=== PATIENT | male | born 1950 | race Caucasian/White ===

== ENCOUNTER 2017-06-08 06:07 | Day surgery (SDC) | payer OTHER, BC ==
[2017-06-07 13:25] VITALS: BMI 43.6
[2017-06-08] MEDS ORDERED: HEPARIN NA (PORCINE) 5,000 UNITS/ML 1ML VIAL ONE (07:40)
[2017-06-08] MEDS ORDERED: LIDOCAINE HCL 1%, 10 MG/ML (20ML VIAL) ONE (07:40)
[2017-06-08] MEDS ORDERED: MIDAZOLAM HCL 2 MG/2 ML SINGLE DOSE VIAL ONE ×2 (07:49→08:25)
[2017-06-08] MEDS ORDERED: PROPOFOL 20 ML ONE ×2 (07:49→08:15)
--- NOTE | 2017-06-08 07:49 | HP ---
History & Physical Update - History History: No Change - Physical Physical: No Change - Assessment Assessment: No Change - Plan Plan: No Change (no interval changes since H&P on 05/30/[address] Dewayne Sotomayor.)
[2017-06-08] MEDS ORDERED: LIDOCAINE HCL/PF 2% SDV 5ML VIAL ONE (08:16)
--- NOTE | 2017-06-08 08:21 | HP ---
Satellite [facility] - Chief Complaint History of Present Illness: 66 year old man with stage 5 renal disease who will rquire hemodiaysis in the near future. History Source: Patient Limitations to Obtaining History: No Limitations - Past Medical History Allergies/Adverse Reactions: Allergies Allergy/AdvReac Type Severity Reaction Status Date / Time No Known Allergies Allergy Verified 06/08/17 06:50 Cardiovascular: Yes: HTN Renal/: Yes: Renal Failure - Current Medications Current Medications: Home Medications Medication Instructions Recorded Amlodipine Besylate [Norvasc -] 10 mg PO DAILY 03/12/14 Sodium Bicarbonate 650 mg PO TID 03/12/14 Ergocalciferol (Vitamin D2) 50,000 unit PO WEEKLY 03/13/14 [Vitamin D] Furosemide [Lasix -] 40 mg PO DAILY 03/13/14 Tamsulosin HCl 0.4 mg PO DAILY 07/08/14 Calcitrol 1 tab PO TID 07/05/16 Ferrous Sulfate 325 mg PO DAILY 06/07/17 Satellite Physical Exam - Physical Examination Vital Signs: Vital Signs Period Temp Pulse Resp BP Sys/Marsh Pulse Ox Last 24 Hr 98.3 F 63 20 139/85 97 General Appearance: Alert & Oriented x3 ENT: Clear Lung: Clear to auscultation Heart: Regular rate & rhythm Abdomen: Soft Extremities: No edema, Other (patent cephalic vein left arm. 2+ radial pulse) Neurological: Intact Satellite Impression/Plan - Impression/Plan Impression: CKD 5 Operative Procedure: Creation AV fistula left arm Date to be Performed: 06/08/17
[2017-06-08] MEDS ORDERED: LIDOCAINE HCL 1%, 10 MG/ML (20ML VIAL) NR ONE ×2 (08:35)
[2017-06-08] MEDS ORDERED: ONDANSETRON 4 MG/2 ML VIAL IVPUSH PRN (09:57)
[2017-06-08] MEDS ORDERED: PROMETHAZINE HCL 25 MG/1 ML VIAL IVPB PRN (09:57)
--- NOTE | 2017-06-08 09:58 | SURG ---
Surgery Client Hr Manager Note Client Hr Manager: Brooke Fragoso PA-C Date of Service: 06/08/17 Diagnosis: Chronic kidney disease stage 4 Procedure: creation of left AV fistula I was present for the entirety of the operative procedure. For further detail, please refer to operative report. Visit type - Case Type Case Type: Scheduled Admission - Emergency Emergency Visit: No - New patient This patient is new to me today: Yes Date on this admission: 06/08/17
--- NOTE | 2017-06-08 09:58 | OP ---
Operative Note - Note: Operative Date: 06/08/17 Pre-Operative Diagnosis: chronic kidney disease stage 4 Operation: Creation of left AV fistula Post-Operative Diagnosis: Same as Pre-op Surgeon: Xavi Bhatt Clinical Leader: Brooke Fragoso Anesthesiologist/REHAB LIAISON: Jesús Morley Anesthesia: General, Local Estimated Blood Loss (mls): 20 Fluid Volume Replaced (mls): 100 Operative Report Dictated: Yes
[2017-06-08] MEDS ORDERED: SODIUM CHLORIDE 1,000 ML IV SCH (10:00)
[2017-06-08] MEDS ORDERED: ACETAMINOPHEN 325 MG TABLET (FP) PO PRN (10:03)
[2017-06-08] MEDS ORDERED: oxyCODONE HCL 5 MG TABLET PO PRN (10:03)
[2017-06-08 10:54] VITALS: TEMP 98.7
[2017-06-08 12:56] VITALS: BP 127/73; PULSE 59
--- NOTE | 2017-06-11 11:32 | OP ---
DATE OF OPERATION: 06/08/2017 SURGEON: Xavi Jurado MD FINANCIAL EXAMINER: DEREK Ramirez PROCEDURE: Creation of arteriovenous fistula, left arm. PREOPERATIVE DIAGNOSIS: Renal failure. POSTOPERATIVE DIAGNOSIS: Renal failure. ANESTHESIA: Fractional. ANESTHESIOLOGIST: Jesús Morley MD OPERATIVE FINDINGS: The left cephalic vein and radial artery were patent at the wrist. OPERATIVE PROCEDURE: Following routine patient identification, side and site verification, intravenous sedation was established. The left arm was prepped with ChloraPrep. Xylocaine 1% was infiltrated subcutaneously over the distal cephalic vein above the wrist. A skin incision was made, and the vein was mobilized from the surrounding tissues. Cautery was used for hemostasis. The vein was ligated distally and incised. It was distended with heparin-papaverine solution. No. 5 and No. 8 feeding tubes were passed proximally without resistance. The vein was covered with moist gauze. The radial artery was then exposed, adjacent site. It was encircled with vessel loops. Small side branches were ligated with silk ties and divided. The vein was then completely freed from its bed with ligation of small side branches. It was passed through a short subcutaneous tunnel to lie next to the artery. The artery was then occluded with vessels loops and opened on exposed surface with a 6-mm arteriotomy. The end of the vein was spatulated, and anastomosed to the side of the artery with running sutures of 6-0 Prolene. Prior to the completion of the suture line, The artery and vein were allowed to back-bleed and flush. Suture line was completed, and all vessels were released. There was good flow through the anastomosis with a palpable thrill in the vein. Bleeding from the suture line was controlled with Surgicel. When hemostasis was achieved, the wound was irrigated and closed with interrupted suture of 3-0 Vicryl and skin jc. Sterile dressings were applied, and the patient was taken to the recovery room in stable condition. XAVI JURADO M.D. [id number]
== END 2017-06-08 12:25 | disposition home or self-care (01) ==
LOC: JASU-SURG 06:07
PROVIDERS: ATTEND Surgery
PROC: 031C0ZF Bypass Left Radial Artery to Lower Arm Vein, Open Approach (ICD-10-PCS; principal; 2017-06-08 08:00)
DX: I12.0 Hypertensive chronic kidney disease with stage 5 chronic kidney disease or end stage renal disease (principal); G51.0 Bell's palsy
CPT/HCPCS: 94760; J1644

== ENCOUNTER 2018-02-08 15:52 | Inpatient (IN) | payer OTHER, BC ==
--- NOTE | 2018-02-08 16:00 | PDOC ---
Rapid Medical Evaluation Time Seen by Provider: 02/08/18 15:53 Medical Evaluation: Allergies Allergy/AdvReac Type Severity Reaction Status Date / Time No Known Allergies Allergy Verified 06/08/17 06:50 02/08/18 15:53 I have performed a brief in-person evaluation of this patient. The patient presents with a chief complaint of: sent by renal for eval of SOB Pertinent physical exam findings: left sided facial droop- Montoya's Palsy, RLE swollen. LUE A-V FIstula +bruit, +thrill I have ordered the following: labs, urine, CXR, EKG The patient will proceed to the ED for further evaluation. Discharge Disposition - Diagnosis SOB (shortness of breath) - Referrals - Patient Instructions - Post Discharge Activity
--- NOTE | 2018-02-08 16:17 | PDOC ---
History of Present Illness - General Chief Complaint: Lethargy Stated Complaint: PCP SENT/PAIN, ACUTE Time Seen by Provider: 02/08/18 15:53 - History of Present Illness Initial Comments: 02/08/18 16:56 The patient is a 67 year old male with a history of HTN, ESRD, Lymphedema, Montoya' s Palsy who presents for evaluation of fatigue and SOB. The patient reports that he has been experiencing worsening SOB and fatigue over the past few weeks. He has not started his dialysis yet and was seen by his renal physician Dr. Win who sent the patient to the ED for admission for beginning dialysis tomorrow. The patient otherwise denies fevers, chills, chest pain, nausea, vomiting, abdominal pain, or changes with bowel movements. Past History - Past Medical History Allergies/Adverse Reactions: Allergies Allergy/AdvReac Type Severity Reaction Status Date / Time No Known Allergies Allergy Verified 02/08/18 15:55 Home Medications: Ambulatory Orders Amlodipine Besylate [Norvasc -] 10 mg PO DAILY 03/12/14 Sodium Bicarbonate 650 mg PO TID 03/12/14 Ergocalciferol (Vitamin D2) [Vitamin D] 50,000 unit PO WEEKLY 03/13/14 Furosemide [Lasix -] 40 mg PO DAILY 03/13/14 Tamsulosin HCl 0.4 mg PO DAILY 07/08/14 Calcitrol 1 tab PO TID 07/05/16 Ferrous Sulfate 325 mg PO DAILY 06/07/17 Anemia: No Asthma: No Cancer: No Cardiac Disorders: No CVA: No COPD: Yes CHF: No Dementia: No Diabetes: No GI Disorders: No Disorders: Yes (CYST ON KIDNEY) HTN: Yes Hypercholesterolemia: No Liver Disease: No Seizures: No Thyroid Disease: No Other medical history: Montoya's Palsy - Surgical History Orthopedic Surgery: Yes (RIGHT CARPAL TUNNEL) - Immunization History Immunization Up to Date: Yes - Suicide/Smoking/Psychosocial Hx Smoking History: Never smoked Have you smoked in the past 12 months: No Information on smoking cessation initiated: No Hx Alcohol Use: No Drug/Substance Use Hx: No Substance Use Type: Alcohol Hx Substance Use Treatment: No Review of Systems - Review of Systems Comments:: 02/08/18 17:00 Constitutional: Fatigue. No fevers, chills, malaise HEENT: No Rhinorrhea, nasal congestion, visual changes Cardiovascular: No chest pain, syncope, palpitations, lightheadedness Respiratory: SOB. No Cough, Hemoptysis, Gastrointestinal: No Abdominal pain, Nausea, Vomiting, Constipation, Diarrhea, Melena Genitourinary: No Dysuria, Frequency, Urgency, Hesitancy, Hematuria, Flank pain Musculoskeletal: No Myalgia, arthralgia Skin: No rashes, itching, bruising, pallor Neurologic: No Headache, Dizziness, Numbness, Weakness, or Tingling Psychiatric: No Hallucinations. No SI or HI *Physical Exam - Vital Signs Last Vital Signs Temp Pulse Resp BP Pulse Ox 98 F 72 18 128/60 100 02/08/18 15:55 02/08/18 15:55 02/08/18 15:55 02/08/18 15:55 02/08/18 15:55 - Physical Exam Comments: 02/08/18 17:01 General Appearance: Nourished. No Apparent Distress HEENT: No Pharyngeal Erythema, Tonsillar Exudate, Tonsillar Erythema Neck: No Cervical Lymphadenopathy Respiratory/Chest: Lungs Clear, Normal Breath Sounds. No Crackles, Rales, Rhonchi, Wheezing Cardiovascular: Regular Rhythm, Regular Rate. 4/6 systolic murmur noted on exam. No Gallops, Rubs Gastrointestinal/Abdominal: Normal Bowel Sounds, Soft. No Guarding, Rebound, Tenderness Musculoskeletal: No CVA Tenderness Extremity: Pitting edema to the lower extremities. Normal Capillary Refill Integumentary: Normal Color, Dry, Warm Neurologic: Fully Oriented, Alert, Normal Mood/Affect, Normal Response, ED Treatment Course - LABORATORY CBC & Chemistry Diagram: 02/09/18 06:30 02/09/18 06:30 Medical Decision Making - Medical Decision Making 02/08/18 17:02 The patient is a 67 year old male with a history of HTN, ESRD, Lymphedema, Montoya' s Palsy who presents for evaluation of fatigue and SOB. Given the patient's history and physical exam, we will obtain a cbc, cmp, troponin, ekg, chest plain film to evaluate further. We discussed the case with Dr. Win who is aware of the patient and will arrange for dialysis tomorrow. We will continue to monitor and reassess while here in the ED. 02/08/18 18:50 CBC, troponin is unremarkable. CMP demonstrates an elevated creatinine to 6.6. Chest plain film is unremarkable. We discussed the case with the admitting team who accepted the patient for admission. *DC/Admit/Observation/Transfer Diagnosis at time of Disposition: SOB (shortness of breath) - Discharge Dispostion Condition at time of disposition: Stable Decision to Admit order: Yes - Referrals - Patient Instructions - Post Discharge Activity
[2018-02-08 16:29] LABS: BASO % 0.6 % (0-2.0); EOS % 2.6 % (0-4.5); HEMATOCRIT 31.7 % (35.4-49); HEMOGLOBIN 10.5 GM/dL (11.7-16.9); LYMPH % 12.5 % (8-40); MCH 30.7 pg (25.7-33.7); MCHC 33.1 g/dl (32.0-35.9); MEAN CELL VOLUME 92.8 fl (80-96); MEAN PLT VOLUME 8.2 fl (7.5-11.1); NEUT % 75.3 % (42.8-82.8); PLATELET COUNT 161 K/MM3 (134-434); RBC 3.41 M/mm3 (4.00-5.60); RDW 16.4 % (11.9-15.9); WHITE BLOOD COUNT 4.6 K/mm3 (4.0-10.0)
[2018-02-08 17:12] LABS: INR 1.13 (0.83-1.09); PROTHROMBIN TIME (PATIENT) 13.4 SEC (9.7-13.0)
[2018-02-08 17:18] LABS: ALBUMIN 3.7 g/dl (3.4-5.0); ALK PHOS 63 U/L (45-117); ANION GAP 10 MMOL/L (8-16); BILIRUBIN,TOTAL 0.5 mg/dL (0.2-1); BLOOD UREA NITROGEN 86 mg/dL (7-18); CALCIUM 8.5 mg/dL (8.5-10.1); CHLORIDE 111 mmol/L (98-107); CO2 20 mmol/L (21-32); CREATININE 6.6 mg/dL (0.55-1.3); GLUCOSE,RANDOM 92 mg/dL (74-106); POTASSIUM 5.2 mmol/L (3.5-5.1); SGOT/AST 14 U/L (15-37); SGPT/ALT 19 U/L (13-61); SODIUM 141 mmol/L (136-145); TOT PROT 7.4 g/dl (6.4-8.2)
--- NOTE | 2018-02-08 17:51 | PDOC ---
Attending Attestation - Resident Resident Name: Ascencion Ramos - ED Attending Attestation I have performed the following: I have examined & evaluated the patient, The case was reviewed & discussed with the resident, I agree w/resident's findings & plan, Exceptions are as noted - HPI HPI: 02/08/18 17:49 67 M with h/o HTN, ESRD, Lymphedema, Montoya's Palsy presenting to ED for weakness and SOB. Pt reports progressively worsening SOB for several days. Denies significant change in leg swelling. Denies chest pain. Denies F/C. Pt was sent in by production finisher for initiation of HD today. Has AVF in place. - Physicial Exam PE: 02/08/18 17:50 "GENERAL: Awake, alert, and fully oriented, in no acute distress. HEAD: No signs of trauma EYES: PERRLA, EOMI, sclera anicteric, conjunctiva clear ENT: Auricles normal inspection, hearing grossly normal, nares patent, oropharynx clear without exudates. Moist mucosa NECK: Nontender, no stepoffs, Normal ROM, supple, no lymphadenopathy, JVD, or masses LUNGS: Breath sounds equal, clear to auscultation bilaterally. No wheezes, and no crackles HEART: Regular rate and rhythm, normal S1 and S2, no murmurs, rubs or gallops ABDOMEN: Soft, nontender, normoactive bowel sounds. No guarding, no rebound. No masses EXTREMITIES: Normal range of motion, no edema. No clubbing or cyanosis. No cords, erythema, or tenderness NEUROLOGICAL: Cranial nerves II through XII intact. 5/5 strength and sensation in all extremities, Normal speech, normal gait, normal cerebellar function SKIN: Warm, Dry, normal turgor, no rashes or lesions noted. - Medical Decision Making 02/08/18 17:50 67 M with weakness and SOB. Likely 2/2 known renal failure. Pt sent in for initiation of HD. - Labs - CXR - Admit
--- NOTE | 2018-02-08 18:14 | PN ---
Teaching Attending Note Name of Resident: Aditya Dhaliwal ATTENDING PHYSICIAN STATEMENT I saw and evaluated the patient. I reviewed the resident's note and discussed the case with the resident. I agree with the resident's findings and plan as documented. SUBJECTIVE:67yo M with PMH HTn, lymphedema, bells palsy and CKD stage V who had AV fistula placed in May 2017 presented for regular scheduled appointment with Nephrology. OBJECTIVE: Last Vital Signs Temp Pulse Resp BP Pulse Ox 98 F 72 18 128/60 100 02/08/18 15:55 02/08/18 15:55 02/08/18 15:55 02/08/18 15:55 02/08/18 17:45 General NAD CV S1 S2 RRR +murmur Lungs CTA B/L no wheezing/rales/rhonchi Abdomen soft NT/ND obese Extremities LUE +av fistula with palpable thrill. chronic skin changes B/L LE, RLE +lymphedema ASSESSMENT AND PLAN:
[2018-02-08 19:39] LABS: URINE APPEARANCE CLEAR; URINE BILIRUBIN NEGATIVE (<2.0 mg/dL); URINE COLOR LTYELLOW; URINE GLUCOSE (UA) NEGATIVE (NEGATIVE); URINE KETONE NEGATIVE (NEGATIVE); URINE LEUK ESTERASE NEGATIVE (NEGATIVE); URINE NITRITE NEGATIVE (NEGATIVE); URINE PROTEIN 3+ (NEGATIVE); URINE UROBILINOGEN NEGATIVE mg/dL (0.2-1.0)
[2018-02-08 20:04] LABS: URINE MUCUS RARE
--- NOTE | 2018-02-08 20:24 | HP ---
CHIEF COMPLAINT: Shortness of breath, fatigue x 1-2 weeks PCP: Dr Sotomayor HISTORY OF PRESENT ILLNESS: Pt is a pleasant 67 y/o gentleman with a significant past medical history of CKD stage V, HTN, chronic lymphadema RLE, and Montoya's palsy. Pt presented to [facility] ED this afternoon after being seen by his Visualizer today who advised the pt to come to our ED as pt did not appear in his USOH. Pt endorses that for the past 1-2 weeks, he has been more short of breath upon walking to the restroom and carrying out daily activities. Denies chest pain, dizziness, LOC, or increased lower extremity swelling. UInderwent AV fistula surgery in May of this year and was suppose to undergo dialysis today. Tentatively he is scheduled for dialysis tomorrow. Also endorses a decreased appetite during this time. ER course was notable for: (1) Troponin 0.03 (2) BUN/CR 86/6.6 (3) Chest XRAY-->No acute process appreciated Recent Travel: denies PAST MEDICAL HISTORY: Per HPI PAST SURGICAL HISTORY: B/L carpel tunnel surgery, eye surgery for " hole in retina", AV fistula Social History: Smoking:Denies Alcohol: Social Drinker Drugs: Denies Family History: Allergies No Known Allergies Allergy (Verified 02/08/18 15:55) HOME MEDICATIONS: Home Medications Medication Instructions Recorded Amlodipine Besylate [Norvasc -] 10 mg PO DAILY 03/12/14 Sodium Bicarbonate 650 mg PO TID 03/12/14 Ergocalciferol (Vitamin D2) 50,000 unit PO WEEKLY 03/13/14 [Vitamin D] Furosemide [Lasix -] 40 mg PO DAILY 03/13/14 Tamsulosin HCl 0.4 mg PO DAILY 07/08/14 Calcitrol 1 tab PO TID 07/05/16 Ferrous Sulfate 325 mg PO DAILY 06/07/17 REVIEW OF SYSTEMS CONSTITUTIONAL: Absent: fever, chills, diaphoresis, generalized weakness, malaise, loss of appetite, weight change HEENT: Absent: rhinorrhea, nasal congestion, throat pain, throat swelling, difficulty swallowing, mouth swelling, ear pain, eye pain, visual changes CARDIOVASCULAR: Absent: chest pain, syncope, palpitations, irregular heart rate, lightheadedness , peripheral edema RESPIRATORY: PRESENT: shortness of breath, dyspnea with exertion GASTROINTESTINAL: Absent: abdominal pain, abdominal distension, nausea, vomiting, diarrhea, constipation, melena, hematochezia GENITOURINARY: Absent: dysuria, frequency, urgency, hesitancy, hematuria, flank pain, genital pain MUSCULOSKELETAL: Absent: myalgia, arthralgia, joint swelling, back pain, neck pain SKIN: Absent: rash, itching, pallor HEMATOLOGIC/IMMUNOLOGIC: Absent: easy bleeding, easy bruising, lymphadenopathy, frequent infections ENDOCRINE: Absent: unexplained weight gain, unexplained weight loss, heat intolerance, cold intolerance NEUROLOGIC: Absent: headache, focal weakness or paresthesias, dizziness, unsteady gait, seizure, mental status changes, bladder or bowel incontinence PSYCHIATRIC: Absent: anxiety, depression, suicidal or homicidal ideation, hallucinations. PHYSICAL EXAMINATION Vital Signs - 24 hr 02/08/18 02/08/18 15:55 17:45 Temperature 98 F Pulse Rate 72 Respiratory 18 Rate Blood Pressure 128/60 O2 Sat by Pulse 100 100 Oximetry (%) GENERAL: AAOx3, NAD HEAD: Normal with no signs of trauma. EYES: EOMI EARS, NOSE, THROAT:MMM. NECK: Supple LUNGS: CTA B/L, no wheezing rales or rhonchi . HEART: Possible holosystolic murmur? ABDOMEN: Soft NDNT No HSM MUSCULOSKELETAL: FROM UPPER EXTREMITIES:AV fistula left lower extremity, thrill palpable LOWER EXTREMITIES: LYMPHADEMA, VENOUS STASIS, onychomycosis b/l feet. NEUROLOGICAL: Cranial nerves II-XII intact. SKIN: Venous stasis, dermatitis RLE Laboratory Results - last 24 hr 02/08/18 02/08/18 02/08/18 16:09 16:15 16:15 WBC 4.6 RBC 3.41 L Hgb 10.5 L Hct 31.7 L D MCV 92.8 MCH 30.7 MCHC 33.1 RDW 16.4 H Plt Count 161 MPV 8.2 D Absolute Neuts (auto) 3.5 Neutrophils % 75.3 Lymphocytes % 12.5 Monocytes % 9.0 Eosinophils % 2.6 Basophils % 0.6 Nucleated RBC % 0 PT with INR 13.40 H INR 1.13 H Sodium 141 Potassium 5.2 H Chloride 111 H Carbon Dioxide 20 L Anion Gap 10 BUN 86 H Creatinine 6.6 H Creat Clearance w eGFR 8.39 Random Glucose 92 Calcium 8.5 Total Bilirubin 0.5 AST 14 L ALT 19 Alkaline Phosphatase 63 Creatine Kinase 56 Troponin I 0.03 Total Protein 7.4 Albumin 3.7 Urine Color Urine Appearance Urine pH Ur Specific [place] Urine Protein Urine Glucose (UA) Urine Ketones Urine Blood Urine Nitrite Urine Bilirubin Urine Urobilinogen Ur Leukocyte Esterase 02/08/18 19:15 WBC RBC Hgb Hct MCV MCH MCHC RDW Plt Count MPV Absolute Neuts (auto) Neutrophils % Lymphocytes % Monocytes % Eosinophils % Basophils % Nucleated RBC % PT with INR INR Sodium Potassium Chloride Carbon Dioxide Anion Gap BUN Creatinine Creat Clearance w eGFR Random Glucose Calcium Total Bilirubin AST ALT Alkaline Phosphatase Creatine Kinase Troponin I Total Protein Albumin Urine Color Ltyellow Urine Appearance Clear Urine pH 5.0 Ur Specific [place] 1.011 Urine Protein 3+ H Urine Glucose (UA) Negative Urine Ketones Negative Urine Blood 1+ H Urine Nitrite Negative Urine Bilirubin Negative Urine Urobilinogen Negative Ur Leukocyte Esterase Negative ASSESSMENT/PLAN: Pt is a pleasant 67 y/o gentleman with a significant past medical history of CKD stage V, HTN, chronic lymphadema RLE, and Montoya's palsy. Pt presented to [facility] ED this afternoon after being seen by his Visualizer today who advised the pt to come to our ED as pt did not appear in his USOH. # SOB/Weakness 2/2 Uremia 2/2 CKD/CHF? - BUN/Cr--> 86/6.6 -Nephrology Dr Tran on board - HD Tomorrow - Echocardiogram -EKG in ED--> 1st degree AV block, consider cardiology consult? -Continue Vit D2, Calciferol, Ferrous Sulfate, NaHCO3 - Troponin 0.03 #HTN Continue Norvasc 10 mg Daily #BPH Tamsulosin 0.8 mg #FEN No Fluids Monitor Electrolytes Renal Diet #DVT ppx: Heparin 5,000 U SQ TID #Dispo: Obs Visit type - Emergency Visit Emergency Visit: Yes ED Registration Date: 02/08/18 Care time: The patient presented to the Emergency Department on the above date and was hospitalized for further evaluation of their emergent condition. - New Patient This patient is new to me today: Yes Date on this admission: 02/08/18 - Critical Care Critical Care patient: No
[2018-02-08] MEDS ORDERED: HEPARIN NA (PORCINE) 5,000 UNITS/ML 1ML VIAL ONE (22:29)
[2018-02-08] MEDS: HEPARIN NA (PORCINE) 5,000 UNITS/ML 1ML VIAL SQ SCH (22:39)
[2018-02-08] MEDS: SODIUM BICARBONATE 650 MG TABLET PO SCH (23:27)
[2018-02-09] MEDS: HEPARIN NA (PORCINE) 5,000 UNITS/ML 1ML VIAL SQ SCH ×3 (05:52→21:17)
[2018-02-09] MEDS: SODIUM BICARBONATE 650 MG TABLET PO SCH ×3 (05:52→21:17)
[2018-02-09 07:13] LABS: BASO % 2.3 % (0-2.0); EOS % 4.2 % (0-4.5); HEMATOCRIT 30.1 % (35.4-49); HEMOGLOBIN 9.7 GM/dL (11.7-16.9); LYMPH % 16.6 % (8-40); MCH 29.7 pg (25.7-33.7); MEAN CELL VOLUME 92.7 fl (80-96); NEUT % 66.9 % (42.8-82.8); PLATELET COUNT 125 K/MM3 (134-434); RBC 3.25 M/mm3 (4.00-5.60); RDW 16.2 % (11.9-15.9); WHITE BLOOD COUNT 4.2 K/mm3 (4.0-10.0)
[2018-02-09 07:33] LABS: ANION GAP 7 MMOL/L (8-16); BLOOD UREA NITROGEN 83 mg/dL (7-18); CALCIUM 8.2 mg/dL (8.5-10.1); CHLORIDE 111 mmol/L (98-107); CO2 22 mmol/L (21-32); CREATININE 6.5 mg/dL (0.55-1.3); GLUCOSE,RANDOM 87 mg/dL (74-106); INR 1.18 (0.83-1.09); MAGNESIUM 2.8 mg/dL (1.8-2.4); PHOSPHOROUS 6.1 mg/dL (2.5-4.9); POTASSIUM 4.8 mmol/L (3.5-5.1); PROTHROMBIN TIME (PATIENT) 13.9 SEC (9.7-13.0); SODIUM 141 mmol/L (136-145)
[2018-02-09 07:36] LABS: ACTIVATED PTT 34.9 SECONDS (25.2-36.5)
[2018-02-09] MEDS: TAMSULOSIN HCL 0.4 MG CAP PO SCH (07:47)
[2018-02-09] MEDS: amLODIPine BESYLATE 10 MG TABLET (FP) PO SCH (10:07)
[2018-02-09] MEDS: CALCITRIOL 0.25 MCG CAPSULE (FP) PO SCH (10:07)
[2018-02-09] MEDS: FUROSEMIDE 40 MG TABLET (FP) PO SCH (10:08)
[2018-02-09] MEDS: FERROUS SO4 325 MG TABLET (FP) PO SCH (10:08)
--- NOTE | 2018-02-09 10:38 | CONSULT ---
Consultation: CONSULT REQUEST: Nephrology Resident HISTORY OF PRESENT ILLNESS: 67yo M with h/o CKD stage V, HTN, RLE lymphedema and Montoya's palsy who initially presented from Dr. Tran's office due to uremia and likely introduction to HD. Pt endorses being increasingly short of breath with his daily activities. He underwent AVF creation in Dr. Bhatt in May 2017 in anticipation of worsening renal status and eventual HD initiation. Pt currently has no new complaints. Pt denies fever/chills, chest pain, palpitations. PMHx: CKD Stage V HTN Chronic lymphedema Montoya's Palsy PSHx: Retinal surgery B/L carpel tunnel release AV fistula creation (May 2017) SoHx: Tobacco: Denies Alcohol: Social Drugs: Denies Lives alone in apartment; independent in ADLs; uses cane for walking Allergies: NKDA REVIEW OF SYSTEMS: CONSTITUTIONAL: Absent: fever, chills, diaphoresis, generalized weakness, malaise, loss of appetite, weight change CARDIOVASCULAR: Absent: chest pain, syncope, palpitations, irregular heart rate, lightheadedness , peripheral edema RESPIRATORY: Absent: cough, shortness of breath, dyspnea with exertion, orthopnea, wheezing, stridor, hemoptysis GASTROINTESTINAL: Absent: abdominal pain, abdominal distension, nausea, vomiting, diarrhea, constipation GENITOURINARY: Absent: dysuria, frequency, urgency, hesitancy, hematuria, flank pain MUSCULOSKELETAL: Absent: myalgia, arthralgia, joint swelling, back pain, neck pain SKIN: Absent: rash, itching, pallor NEUROLOGIC: Absent: headache, focal weakness or paresthesias, dizziness, unsteady gait, seizure, mental status changes, bladder or bowel incontinence PSYCHIATRIC: Absent: anxiety, depression, PHYSICAL EXAMINATION Vital Signs - 24 hr 02/08/18 02/08/18 02/08/18 15:55 17:45 20:15 Temperature 98 F 99.1 F Pulse Rate 72 Pulse Rate [ 60 Apical] Respiratory 18 18 Rate Blood Pressure 128/60 Blood Pressure 126/69 [Right Arm] O2 Sat by Pulse 100 100 98 Oximetry (%) 02/08/18 02/09/18 02/09/18 23:20 02:00 06:00 Temperature 97.6 F 98 F 97.7 F Pulse Rate 68 65 64 Pulse Rate [ Apical] Respiratory 18 18 18 Rate Blood Pressure 140/81 98/61 133/70 Blood Pressure [Right Arm] O2 Sat by Pulse 98 98 Oximetry (%) GENERAL: NAD, awake, alert, and fully oriented, sitting in bed eating lunch HEENT: NC/AT, EOMI, TRISTAN, sclera anicteric, MMM NECK: No JVD LUNGS: CTA bilaterally with good inspiratory effort noted. No wheezes, and no crackles. No accessory muscle use. HEART: RRR, normal S1 and S2 without murmur ABDOMEN: Soft, NT/ND, normoactive bowel sounds, no guarding. EXTREMITIES: 2+ lower extremitiy pulses, L wrist AVF with strong thrill with systolic upstroke. No peripheral edema PSYCHIATRIC: Cooperative. Good eye contact. Appropriate mood and affect. SKIN: Warm, dry, no rashes Laboratory Results - last 24 hr 02/08/18 02/08/18 02/08/18 16:09 16:15 16:15 WBC 4.6 RBC 3.41 L Hgb 10.5 L Hct 31.7 L D MCV 92.8 MCH 30.7 MCHC 33.1 RDW 16.4 H Plt Count 161 MPV 8.2 D Absolute Neuts (auto) 3.5 Neutrophils % 75.3 Lymphocytes % 12.5 Monocytes % 9.0 Eosinophils % 2.6 Basophils % 0.6 Nucleated RBC % 0 PT with INR 13.40 H INR 1.13 H PTT (Actin FS) Sodium 141 Potassium 5.2 H Chloride 111 H Carbon Dioxide 20 L Anion Gap 10 BUN 86 H Creatinine 6.6 H Creat Clearance w eGFR 8.39 Random Glucose 92 Calcium 8.5 Phosphorus Magnesium Total Bilirubin 0.5 AST 14 L ALT 19 Alkaline Phosphatase 63 Creatine Kinase 56 Troponin I 0.03 Total Protein 7.4 Albumin 3.7 Urine Color Urine Appearance Urine pH Ur Specific [address] Urine Protein Urine Glucose (UA) Urine Ketones Urine Blood Urine Nitrite Urine Bilirubin Urine Urobilinogen Ur Leukocyte Esterase Urine WBC (Auto) Urine RBC (Auto) Urine Mucus 02/08/18 02/09/18 02/09/18 19:15 06:30 06:30 WBC 4.2 RBC 3.25 L Hgb 9.7 L Hct 30.1 L MCV 92.7 MCH 29.7 MCHC 32.0 RDW 16.2 H Plt Count 125 L D MPV 8.0 Absolute Neuts (auto) 2.8 Neutrophils % 66.9 Lymphocytes % 16.6 D Monocytes % 10.0 Eosinophils % 4.2 Basophils % 2.3 H D Nucleated RBC % 0 PT with INR 13.90 H INR 1.18 H PTT (Actin FS) 34.9 Sodium Potassium Chloride Carbon Dioxide Anion Gap BUN Creatinine Creat Clearance w eGFR Random Glucose Calcium Phosphorus Magnesium Total Bilirubin AST ALT Alkaline Phosphatase Creatine Kinase Troponin I Total Protein Albumin Urine Color Ltyellow Urine Appearance Clear Urine pH 5.[address] 1.011 Urine Protein 3+ H Urine Glucose (UA) Negative Urine Ketones Negative Urine Blood 1+ H Urine Nitrite Negative Urine Bilirubin Negative Urine Urobilinogen Negative Ur Leukocyte Esterase Negative Urine WBC (Auto) 3 Urine RBC (Auto) <1 Urine Mucus Rare 02/09/18 06:30 WBC RBC Hgb Hct MCV MCH MCHC RDW Plt Count MPV Absolute Neuts (auto) Neutrophils % Lymphocytes % Monocytes % Eosinophils % Basophils % Nucleated RBC % PT with INR INR PTT (Actin FS) Sodium 141 Potassium 4.8 Chloride 111 H Carbon Dioxide 22 Anion Gap 7 L BUN 83 H Creatinine 6.5 H Creat Clearance w eGFR 8.54 Random Glucose 87 Calcium 8.2 L Phosphorus 6.1 H Magnesium 2.8 H Total Bilirubin AST ALT Alkaline Phosphatase Creatine Kinase Troponin I Total Protein Albumin Urine Color Urine Appearance Urine pH Ur Specific [address] Urine Protein Urine Glucose (UA) Urine Ketones Urine Blood Urine Nitrite Urine Bilirubin Urine Urobilinogen Ur Leukocyte Esterase Urine WBC (Auto) Urine RBC (Auto) Urine Mucus Active Medications Generic Name Dose Route Start Last Admin Trade Name Freq PRN Reason Stop Dose Admin Amlodipine Besylate 10 mg 02/09/18 10:00 02/09/18 10:07 Norvasc - PO 10 mg DAILY [facility] Administration Calcitriol 0.25 mcg 02/09/18 10:00 02/09/18 10:07 Rocaltrol - PO 0.25 mcg DAILY [facility] Administration Ergocalciferol 50,000 unit 02/15/18 10:00 Drisdol - PO We@1000 [facility] Ferrous Sulfate 325 mg 02/09/18 10:00 02/09/18 10:08 Feosol - PO 325 mg DAILY [facility] Administration Furosemide 40 mg 02/09/18 10:00 02/09/18 10:08 Lasix - PO 40 mg DAILY [facility] Administration Heparin Sodium (Porcine) 5,000 unit 02/08/18 22:00 02/09/18 05:52 Heparin - SQ 5,000 unit TID [facility] Administration Sodium Bicarbonate 650 mg 02/08/18 22:00 02/09/18 05:52 Sodium Bicarbonate - PO 650 mg TID [facility] Administration Tamsulosin HCl 0.8 mg 02/09/18 08:30 02/09/18 07:47 Flomax - PO 0.8 mg DAILY@0830 [facility] Administration ASSESSMENT/PLAN: Uremia Hyperkalemia (improved) CKD stage V 1st Degree AV block Montoya's Palsy Vascular to assess for AVF usability Can arrange for short course of HD tomorrow --Likely short course 2:00h with 200-250abf for initiation to avoid disequilibrium syndrome --Discussed with pt about starting dialysis and is okay with initiating dialysis now. Will obtain consent from pt prior to procedure. All questions answered Lyme Ab ordered given 1st degree AV block and Montoya's palsy; will f/u Dispo: HD initiation tomorrow pending vascular surgery approval of aVF. Thank you for this consultative opportunity Case to be discussed Eliceo Diaz, - IM PGY-2 Visit type - Emergency Visit Emergency Visit: Yes ED Registration Date: 02/08/18 Care time: The patient presented to the Emergency Department on the above date and was hospitalized for further evaluation of their emergent condition. - New Patient This patient is new to me today: Yes Date on this admission: 02/09/18 - Critical Care Critical Care patient: No
--- NOTE | 2018-02-09 11:50 | EKG ---
Test Reason : Blood Pressure : / mmHG Vent. Rate : 065 BPM Atrial Rate : 065 BPM P-R Int : 210 ms QRS Dur : 108 ms QT Int : 410 ms P-R-T Axes : 056 -25 046 degrees QTc Int : 426 ms SINUS RHYTHM WITH 1ST DEGREE A-V BLOCK CANNOT RULE OUT ANTERIOR INFARCT , AGE UNDETERMINED ABNORMAL ECG NO PREVIOUS ECGS AVAILABLE Confirmed by ABRIL DE LA CRUZ MD ([id number]) on 02/09/2018 11:50:51 AM Referred By: Confirmed By:ABRIL DE LA CRUZ MD
[2018-02-09] MEDS ORDERED: PNEUMOC 13-VAL CONJ-DIP CRM/PF 0.5 ML DISP.SYRIN IM ONE (12:30)
--- NOTE | 2018-02-09 13:17 | PN ---
Teaching Attending Note Name of Resident: Aditya Lopez ATTENDING PHYSICIAN STATEMENT I saw and evaluated the patient. I reviewed the resident's note and discussed the case with the resident. I agree with the resident's findings and plan as documented. SUBJECTIVE:feeling better today. still does not feel at baseline. dneies CP, SOB , fever, chills, N/V/C/D OBJECTIVE: Last Vital Signs Temp Pulse Resp BP Pulse Ox 97.8 F 65 18 124/60 98 02/09/18 10:00 02/09/18 10:00 02/09/18 10:00 02/09/18 10:00 02/09/18 06:00 General NAD CV S1 S2 RRR Lungs CTA B/L no wheezing/rales/rhonchi ASSESSMENT AND PLAN: 67yo M with PMHHTN, [place]ist[place] palsy, lymphedema, CKD stage V presented to the Er wtih vague constitutional symptoms and general well being and found to be uremic and plan to initiate HD at this time 1. Acute uremia-clinically stable. plan to initiate HD today. gilles will do 2 abbreviated sessions to prevent disequilibrium syndrome. no signs of volume overload. nephrology consulted 2. 1st degree AV block- seen on EKG. no previous to compare. hx of bells palsy. Lyme titers sent. can f/u with cardio as outpatient 3. lympedema- elevate legs. 4. HTN- controlled. cont home medications 5. [place] Palsy 6. DVT ppx- hep sq
--- NOTE | 2018-02-09 14:10 | PN ---
Teaching Attending Note Name of Resident: Eliceo Diaz (Nephrology) ATTENDING PHYSICIAN STATEMENT I saw and evaluated the patient. I reviewed the resident's note and discussed the case with the resident. I agree with the resident's findings and plan as documented. Renal Pt is a 67year old male with pmhx of CKD and HTN. I sent him to ER yesterday as I saw him in the office and he appeared uremic. He was also complaining pf fatigue and decreased PO intake. He says he feels better today and is actually tolerating diet. pmhx htn ckd lymphedema pshx avf social neg Current Medications Generic Name Dose Route Start Last Admin Trade Name Freq PRN Reason Stop Dose Admin Amlodipine Besylate 10 mg 02/09/18 10:00 02/09/18 10:07 Norvasc - PO 10 mg DAILY [facility] Administration Calcitriol 0.25 mcg 02/09/18 10:00 02/09/18 10:07 Rocaltrol - PO 0.25 mcg DAILY [facility] Administration Ergocalciferol 50,000 unit 02/15/18 10:00 Drisdol - PO We@1000 [facility] Ferrous Sulfate 325 mg 02/09/18 10:00 02/09/18 10:08 Feosol - PO 325 mg DAILY [facility] Administration Furosemide 40 mg 02/09/18 10:00 02/09/18 10:08 Lasix - PO 40 mg DAILY [facility] Administration Heparin Sodium (Porcine) 5,000 unit 02/08/18 22:00 02/09/18 13:28 Heparin - SQ 5,000 unit TID [facility] Administration Sodium Bicarbonate 650 mg 02/08/18 22:00 02/09/18 13:27 Sodium Bicarbonate - PO 650 mg TID [facility] Administration Tamsulosin HCl 0.8 mg 02/09/18 08:30 02/09/18 07:47 Flomax - PO 0.8 mg DAILY@0830 [facility] Administration Laboratory Tests 02/09/18 02/09/18 06:30 06:30 Hgb 9.7 L Potassium 4.8 BUN 83 H Creatinine 6.5 H Last Vital Signs Temp Pulse Resp BP Pulse Ox 97.8 F 65 18 124/60 98 02/09/18 10:00 02/09/18 10:00 02/09/18 10:00 02/09/18 10:00 02/09/18 06:00 cardio s1s2 reg pulm clear GI soft obese ext lymphedema neuro awake skin venous stasis Impression 1. CKD 2. htn 3. lymphedema Plan - called vascular to evaluate fistula - if fistula is mature enough, start HD tomorrow - if not the will try to hold off and observe pt as outpt - would like to avoid a permacath if possible - pt is also clinically improved Dr Tran
[2018-02-09 15:39] VITALS: BMI 42.5
[2018-02-09] MEDS: CALCIUM ACETATE 667 MG CAPSULE (FP) PO SCH (16:54)
--- NOTE | 2018-02-09 17:30 | CONSULT ---
Consult - History of Present Illness History of Present Illness: 67 year old man with renal failure who will need dialysis to start. He has a left arm AV fistula created in May. He has no pian or swelling in the arm. - Past Medical History Cardio/Vascular: Yes: HTN Renal/: Yes: Renal Failure - Alcohol/Substance Use Hx Alcohol Use: No - Smoking History Smoking history: Never smoked Have you smoked in the past 12 months: No Home Medications - Allergies Allergies/Adverse Reactions: Allergies Allergy/AdvReac Type Severity Reaction Status Date / Time No Known Allergies Allergy Verified 02/08/18 15:55 - Home Medications Home Medications: Ambulatory Orders Amlodipine Besylate [Norvasc -] 10 mg PO DAILY 03/12/14 Sodium Bicarbonate 650 mg PO TID 03/12/14 Ergocalciferol (Vitamin D2) [Vitamin D] 50,000 unit PO WEEKLY 03/13/14 Furosemide [Lasix -] 40 mg PO DAILY 03/13/14 Tamsulosin HCl 0.4 mg PO DAILY 07/08/14 Calcitrol 1 tab PO TID 07/05/16 Ferrous Sulfate 325 mg PO DAILY 06/07/17 Physical Exam Vital Signs: Vital Signs Temperature 97.3 F L 02/09/18 14:12 Pulse Rate 68 02/09/18 14:12 Respiratory Rate 18 02/09/18 14:12 Blood Pressure 122/64 02/09/18 14:12 O2 Sat by Pulse Oximetry (%) 98 02/09/18 14:00 Extremities: Yes: Other (Left radial cephalic fistula with good bruit and thrill. Vein 5-6 mm by exam.) Labs: CBC, BMP 02/09/18 06:30 02/09/18 06:30 Problem List - Problems (1) CKD (chronic kidney disease) stage 5, GFR less than 15 ml/min Assessment/Plan: Left arm fistula is mature and may be used for dialysis access. He had a [facility] evaluation in my office in August which showed the vein > 6 mm with volume flow 800 cc/min. Code(s): N18.5 - CHRONIC KIDNEY DISEASE, STAGE 5
--- NOTE | 2018-02-09 18:48 | PN ---
Physical Exam: SUBJECTIVE: Patient seen and examined at bedside. Denies any complaints. Resting in bed comfortably. No acute events overnight. For HD tomorrow. OBJECTIVE: Vital Signs Period Temp Pulse Resp BP Sys/Marsh Pulse Ox Last 24 Hr 97.3 F-99.1 F 60-68 18-18 98-140/60-81 98-98 GENERAL: AAOx3, NAD HEAD: NC/AT EYES: PERRLA, EOMI No scleral icterus ENT: MMM No adenopathy, no JVD NECK: Trachea midline supple LUNGS:CTA B/L HEART: Murmur heart in all 4 areas of heart. 2/2 to thrill from AV fistula? ABDOMEN: Obese NDNT No HSM EXTREMITIES: Lymphadema Right lower extremity, venous stasis/dermatitis. AV fistula left arm. PSYCH: Normal mood, normal affect. SKIN:Venous stasis/dermatitis b/l lower extremities Laboratory Results - last 24 hr 02/08/18 02/09/18 02/09/18 19:15 06:30 06:30 WBC 4.2 RBC 3.25 L Hgb 9.7 L Hct 30.1 L MCV 92.7 MCH 29.7 MCHC 32.0 RDW 16.2 H Plt Count 125 L D MPV 8.0 Absolute Neuts (auto) 2.8 Neutrophils % 66.9 Lymphocytes % 16.6 D Monocytes % 10.0 Eosinophils % 4.2 Basophils % 2.3 H D Nucleated RBC % 0 PT with INR 13.90 H INR 1.18 H PTT (Actin FS) 34.9 Sodium Potassium Chloride Carbon Dioxide Anion Gap BUN Creatinine Creat Clearance w eGFR Random Glucose Calcium Phosphorus Magnesium Urine Color Ltyellow Urine Appearance Clear Urine pH 5.0 Ur Specific [place] 1.011 Urine Protein 3+ H Urine Glucose (UA) Negative Urine Ketones Negative Urine Blood 1+ H Urine Nitrite Negative Urine Bilirubin Negative Urine Urobilinogen Negative Ur Leukocyte Esterase Negative Urine WBC (Auto) 3 Urine RBC (Auto) <1 Urine Mucus Rare 02/09/18 06:30 WBC RBC Hgb Hct MCV MCH MCHC RDW Plt Count MPV Absolute Neuts (auto) Neutrophils % Lymphocytes % Monocytes % Eosinophils % Basophils % Nucleated RBC % PT with INR INR PTT (Actin FS) Sodium 141 Potassium 4.8 Chloride 111 H Carbon Dioxide 22 Anion Gap 7 L BUN 83 H Creatinine 6.5 H Creat Clearance w eGFR 8.54 Random Glucose 87 Calcium 8.2 L Phosphorus 6.1 H Magnesium 2.8 H Urine Color Urine Appearance Urine pH Ur Specific [place] Urine Protein Urine Glucose (UA) Urine Ketones Urine Blood Urine Nitrite Urine Bilirubin Urine Urobilinogen Ur Leukocyte Esterase Urine WBC (Auto) Urine RBC (Auto) Urine Mucus Active Medications Generic Name Dose Route Start Last Admin Trade Name Freq PRN Reason Stop Dose Admin Amlodipine Besylate 10 mg 02/09/18 10:00 02/09/18 10:07 Norvasc - PO 10 mg DAILY [facility] Administration Calcitriol 0.25 mcg 02/09/18 10:00 02/09/18 10:07 Rocaltrol - PO 0.25 mcg DAILY [facility] Administration Calcium Acetate 667 mg 02/09/18 17:30 02/09/18 16:54 Phoslo - PO 667 mg TIDCM [facility] Administration Ergocalciferol 50,000 unit 02/15/18 10:00 Drisdol - PO We@1000 [facility] Ferrous Sulfate 325 mg 02/09/18 10:00 02/09/18 10:08 Feosol - PO 325 mg DAILY [facility] Administration Furosemide 40 mg 02/09/18 10:00 02/09/18 10:08 Lasix - PO 40 mg DAILY [facility] Administration Heparin Sodium (Porcine) 5,000 unit 02/08/18 22:00 02/09/18 13:28 Heparin - SQ 5,000 unit TID [facility] Administration Sodium Bicarbonate 650 mg 02/08/18 22:00 02/09/18 13:27 Sodium Bicarbonate - PO 650 mg TID [facility] Administration Tamsulosin HCl 0.8 mg 02/09/18 08:30 02/09/18 07:47 Flomax - PO 0.8 mg DAILY@0830 [facility] Administration ASSESSMENT/PLAN: Pt is a pleasant 67 y/o gentleman with a significant past medical history of CKD stage V, HTN, chronic lymphadema RLE, and Montoya's palsy. Pt presented to [facility] ED this afternoon after being seen by his Regional Sales Engineer today who advised the pt to come to our ED as pt did not appear in his USOH. # SOB/Weakness 2/2 Uremia 2/2 CKD/CHF? - BUN/Cr--> 86/6.6 -Nephrology Dr Tran/Dr Diaz on board - HD Tomorrow. Dr Bhatt evaluated pt today, AV fistula is mature and ready for HD use. Will undergo short course in order to avoid disequilibrium syndrome. -EKG in ED--> 1st degree AV block, consider cardiology consult? Lyme titers sent to lab -Continue Vit D2, Calciferol, Ferrous Sulfate, NaHCO3 - Troponin 0.03 #HTN Continue Norvasc 10 mg Daily #BPH Tamsulosin 0.8 mg #FEN No Fluids Monitor Electrolytes Renal Diet #DVT ppx: Heparin 5,000 U SQ TID #Dispo: med-surg Visit type - Emergency Visit Emergency Visit: Yes ED Registration Date: 02/08/18 Care time: The patient presented to the Emergency Department on the above date and was hospitalized for further evaluation of their emergent condition. - New Patient This patient is new to me today: No - Critical Care Critical Care patient: No - Discharge Referral Referred to [facility] Med P.C.: No
[2018-02-10] MEDS: SODIUM BICARBONATE 650 MG TABLET PO SCH ×3 (05:52→21:30)
[2018-02-10] MEDS: HEPARIN NA (PORCINE) 5,000 UNITS/ML 1ML VIAL SQ SCH ×3 (05:52→21:30)
[2018-02-10 07:37] LABS: ANION GAP 8 MMOL/L (8-16); BLOOD UREA NITROGEN 83 mg/dL (7-18); CALCIUM 8.3 mg/dL (8.5-10.1); CHLORIDE 112 mmol/L (98-107); CO2 20 mmol/L (21-32); CREATININE 6.2 mg/dL (0.55-1.3); GLUCOSE,RANDOM 86 mg/dL (74-106); MAGNESIUM 2.8 mg/dL (1.8-2.4); POTASSIUM 4.8 mmol/L (3.5-5.1); SODIUM 141 mmol/L (136-145)
[2018-02-10] MEDS: TAMSULOSIN HCL 0.4 MG CAP PO SCH (07:55)
[2018-02-10] MEDS: CALCIUM ACETATE 667 MG CAPSULE (FP) PO SCH ×3 (07:55→17:10)
--- NOTE | 2018-02-10 11:15 | PN ---
Physical Exam: SUBJECTIVE: Patient seen and examined at bedside. No acute complaints. OBJECTIVE: Vital Signs Period Temp Pulse Resp BP Sys/Marsh Pulse Ox Last 24 Hr 97.3 F-98.2 F 61-70 18-20 120-128/64-75 97-98 GENERAL: AAOx3, NAD EYES: PERRLA, EOMI LUNGS:CTA HEART: 4/6 systolic murmur noted, could be thrill from AV fistula ABDOMEN: obese, soft, nontender EXTREMITIES: Lymphadema Right lower extremity, venous stasis/dermatitis. AV fistula left arm. Laboratory Results - last 24 hr 02/10/18 06:00 Sodium 141 Potassium 4.8 Chloride 112 H Carbon Dioxide 20 L Anion Gap 8 BUN 83 H Creatinine 6.2 H Creat Clearance w eGFR 9.02 Random Glucose 86 Calcium 8.3 L Magnesium 2.8 H Active Medications Generic Name Dose Route Start Last Admin Trade Name Freq PRN Reason Stop Dose Admin Amlodipine Besylate 10 mg 02/09/18 10:00 02/09/18 10:07 Norvasc - PO 10 mg DAILY [facility] Administration Calcitriol 0.25 mcg 02/09/18 10:00 02/09/18 10:07 Rocaltrol - PO 0.25 mcg DAILY [facility] Administration Calcium Acetate 667 mg 02/09/18 17:30 02/10/18 07:55 Phoslo - PO 667 mg TIDCM [facility] Administration Ergocalciferol 50,000 unit 02/15/18 10:00 Drisdol - PO We@1000 [facility] Ferrous Sulfate 325 mg 02/09/18 10:00 02/09/18 10:08 Feosol - PO 325 mg DAILY [facility] Administration Furosemide 40 mg 02/09/18 10:00 02/09/18 10:08 Lasix - PO 40 mg DAILY [facility] Administration Heparin Sodium (Porcine) 5,000 unit 02/08/18 22:00 02/10/18 05:52 Heparin - SQ 5,000 unit TID [facility] Administration Sodium Bicarbonate 650 mg 02/08/18 22:00 02/10/18 05:52 Sodium Bicarbonate - PO 650 mg TID [facility] Administration Tamsulosin HCl 0.8 mg 02/09/18 08:30 02/10/18 07:55 Flomax - PO 0.8 mg DAILY@0830 [facility] Administration ASSESSMENT/PLAN: 67 y/o gentleman with a significant past medical history of CKD stage V, HTN, chronic lymphadema RLE, and Montoya's palsy admitted for dialysis #Weakness and SOB: resolved -nephro following, likely for HD today and tomorrow, will discuss -Continue Vit D2, Calciferol, Ferrous Sulfate, NaHCO3 #1st Degree AV Block: stable -f/u lyme titers #Hypertension: stable -continue Norvasc 10 mg Daily #Benign Prostatic Hyperplasia -Tamsulosin 0.8 mg #FEN No Fluids Monitor Electrolytes Renal Diet #Prophylaxis -Heparin 5,000 U SQ TID #Disposition: -Continue to monitor on med surg Visit type - Emergency Visit Emergency Visit: No - New Patient This patient is new to me today: No - Critical Care Critical Care patient: No
--- NOTE | 2018-02-10 12:28 | PN ---
Teaching Attending Note Name of Resident: Eliceo Guzman ATTENDING PHYSICIAN STATEMENT I saw and evaluated the patient. I reviewed the resident's note and discussed the case with the resident. I agree with the resident's findings and plan as documented. SUBJECTIVE:states he feels better today. denies CP, SOB, fever, chills, n/V/C/D OBJECTIVE: Last Vital Signs Temp Pulse Resp BP Pulse Ox 98.1 F 65 20 121/75 97 02/10/18 10:00 02/10/18 10:00 02/10/18 10:00 02/10/18 10:00 02/09/18 22:00 General NAD CV S1 S2 RRR Lungs CTA B/L no wheezing/rales/rhonchi ASSESSMENT AND PLAN: 67yo M with PMHHTN, [place] palsy, lymphedema, CKD stage V presented to the Er wtih vague constitutional symptoms and general well being and found to be uremic and plan to initiate HD at this time 1. Acute uremia-clinically stable. AV graft determined working. plan to initiate HD today. further recommendations per neprho 2. 1st degree AV block- seen on EKG. no previous to compare. hx of bells palsy. Lyme titers sent. can f/u with cardio as outpatient 3. lympedema- elevate legs. 4. HTN- controlled. cont home medications 5. [place] Palsy 6. DVT ppx- hep sq
--- NOTE | 2018-02-10 13:51 | PN ---
Progress Note (short form) - Note Progress Note: nephrology covering dr alford Problems 1. CKD5 2. htn 3. lymphedema He was cleared by vascular to use his AV access Current Medications Amlodipine Besylate (Norvasc -) 10 mg PO DAILY [facility] Last Admin: 02/09/18 10:07 Dose: 10 mg Calcitriol (Rocaltrol -) 0.25 mcg PO DAILY [facility] Last Admin: 02/09/18 10:07 Dose: 0.25 mcg Calcium Acetate (Phoslo -) 667 mg PO TIDCM [facility] Last Admin: 02/10/18 13:48 Dose: Not Given Ergocalciferol (Drisdol -) 50,000 unit PO We@1000 [facility] Ferrous Sulfate (Feosol -) 325 mg PO DAILY [facility] Last Admin: 02/09/18 10:08 Dose: 325 mg Furosemide (Lasix -) 40 mg PO DAILY [facility] Last Admin: 02/09/18 10:08 Dose: 40 mg Heparin Sodium (Porcine) (Heparin -) 5,000 unit SQ TID [facility] Last Admin: 02/10/18 05:52 Dose: 5,000 unit Sodium Bicarbonate (Sodium Bicarbonate -) 650 mg PO TID [facility] Last Admin: 02/10/18 05:52 Dose: 650 mg Tamsulosin HCl (Flomax -) 0.8 mg PO DAILY@0830 [facility] Last Admin: 02/10/18 07:55 Dose: 0.8 mg Last Vital Signs Temp Pulse Resp BP Pulse Ox 98.1 F 65 20 121/75 97 02/10/18 10:00 02/10/18 10:00 02/10/18 10:00 02/10/18 10:00 02/09/18 22:00 Lungs clear Heart reg ext mild edema CBC, BMP 02/09/18 06:30 02/10/18 06:00 IMP esrd elective start of dialysis Plan- Prepare a dialysis packet
[2018-02-10 14:42] LABS: HEMATOCRIT 26.6 % (35.4-49); HEMOGLOBIN 8.7 GM/dL (11.7-16.9); MCHC 32.6 g/dl (32.0-35.9); MEAN PLT VOLUME 8.1 fl (7.5-11.1); PLATELET COUNT 118 K/MM3 (134-434); RBC 2.89 M/mm3 (4.00-5.60); RDW 15.9 % (11.9-15.9); WHITE BLOOD COUNT 3.1 K/mm3 (4.0-10.0)
[2018-02-10] MEDS: FERROUS SO4 325 MG TABLET (FP) PO SCH (16:34)
[2018-02-10] MEDS: CALCITRIOL 0.25 MCG CAPSULE (FP) PO SCH (16:34)
[2018-02-10] MEDS: FUROSEMIDE 40 MG TABLET (FP) PO SCH (16:34)
[2018-02-10] MEDS: amLODIPine BESYLATE 10 MG TABLET (FP) PO SCH ×2 (16:35→16:47)
[2018-02-11] MEDS: HEPARIN NA (PORCINE) 5,000 UNITS/ML 1ML VIAL SQ SCH ×3 (05:50→22:04)
[2018-02-11] MEDS: SODIUM BICARBONATE 650 MG TABLET PO SCH ×3 (05:50→22:04)
[2018-02-11 08:29] LABS: HEMATOCRIT 30.7 % (35.4-49); HEMOGLOBIN 9.7 GM/dL (11.7-16.9); MCH 29.5 pg (25.7-33.7); MCHC 31.7 g/dl (32.0-35.9); PLATELET COUNT 114 K/MM3 (134-434); RDW 16.3 % (11.9-15.9); WHITE BLOOD COUNT 4.8 K/mm3 (4.0-10.0)
--- NOTE | 2018-02-11 09:07 | DS ---
Physical Exam: SUBJECTIVE: Patient seen and examined. asymptomatic. states he no longer feels weak. tolerated HD yesterday. denies CP, SOB, fever, chills, N/V/C/D OBJECTIVE: Vital Signs Period Temp Pulse Resp BP Sys/Marsh Pulse Ox Last 24 Hr 97.5 F-98.1 F 56-68 18-20 108-134/59-77 97 PHYSICAL EXAM GENERAL: The patient is awake, alert, and fully oriented, in no acute distress. HEAD: Normal with no signs of trauma. EYES: PERRL, extraocular movements intact, sclera anicteric, conjunctiva clear. ENT: Ears normal, nares patent, oropharynx clear without exudates, moist mucous membranes. NECK: Trachea midline, full range of motion, supple. LUNGS: Breath sounds equal, clear to auscultation bilaterally, no wheezes, no crackles, no accessory muscle use. HEART: Regular rate and rhythm, S1, S2 without murmur, rub or gallop. ABDOMEN: Soft, nontender, nondistended, normoactive bowel sounds, no guarding, no rebound, no hepatosplenomegaly, no masses. EXTREMITIES: 2+ pulses, warm, well-perfused, no edema. +AV palpable thrill LUE wrist NEUROLOGICAL: Cranial nerves II through XII grossly intact. Normal speech, gait not observed. PSYCH: Normal mood, normal affect. SKIN: Warm, dry, normal turgor, no rashes or lesions noted. LABS Laboratory Results - last 24 hr 02/09/18 02/10/18 02/11/18 13:00 14:00 08:08 WBC 3.1 L 4.8 RBC 2.89 L 3.30 L Hgb 8.7 L 9.7 L Hct 26.6 L 30.7 L D MCV 92.0 93.0 MCH 30.0 29.5 MCHC 32.6 31.7 L RDW 15.9 16.3 H Plt Count 118 L 114 L MPV 8.1 8.0 Lyme Screen IgG & IgM <0.91 HOSPITAL COURSE: Date of Admission:02/08/18 Date of Discharge: 02/11/18 Admititng diagnosis: Acute uremia Pre hospital course 67yo M with PMH HTn, lymphedema, bells palsy and CKD stage V who had AV fistula placed in May 2017 presented for regular scheduled appointment with Nephrology. pt presented to regular scheduled appt with nephrology with vague complaints of discomfort. pt states he did not have any difficulty breathing as mentioned in the Er chart. denies CP, SOB, fever, chills, cough, N/V/C/D, increased in size of leg or worsening edema Subsequent hospital course Medicine observation. evaluated by vasc surg who stated that the fistula was mature for use. HD initiated in 2 abbreviated sessions. pt tolerated well. Lyme titer sent for new 1st degree heart block which was negative. d/c home with instruction to f/u for regular HD. Minutes to complete discharge: 40 Discharge Summary Reason For Visit: SHORTNESS OF BREATH Current Active Problems CKD (chronic kidney disease) stage 5, GFR less than 15 ml/min (Acute) SOB (shortness of breath) (Acute) Condition: Stable - Instructions Referrals: Dewayne Sotomayor [Primary Care Provider] - - Home Medications Comprehensive Discharge Medication List: Ambulatory Orders Amlodipine Besylate [Norvasc -] 10 mg PO DAILY 03/12/14 Sodium Bicarbonate 650 mg PO TID 03/12/14 Ergocalciferol (Vitamin D2) [Vitamin D] 50,000 unit PO WEEKLY 03/13/14 Furosemide [Lasix -] 40 mg PO DAILY 03/13/14 Tamsulosin HCl 0.4 mg PO DAILY 07/08/14 Calcitrol 1 tab PO TID 07/05/16 Ferrous Sulfate 325 mg PO DAILY 06/07/17 This patient is new to me today: No Emergency Visit: Yes ED Registration Date: 02/08/18 Care time: The patient presented to the Emergency Department on the above date and was hospitalized for further evaluation of their emergent condition. Critical Care patient: No - Discharge Referral Referred to [facility] Med P.C.: No
[2018-02-11] MEDS: CALCIUM ACETATE 667 MG CAPSULE (FP) PO SCH ×3 (09:49→18:10)
[2018-02-11] MEDS: TAMSULOSIN HCL 0.4 MG CAP PO SCH (09:49)
--- NOTE | 2018-02-11 13:08 | PN ---
Progress Note (short form) - Note Progress Note: asymptomatic. denies Cp, SOB, fever, chills, N/V/C/D Current Medications Generic Name Dose Route Start Last Admin Trade Name Anita PRN Reason Stop Dose Admin Amlodipine Besylate 10 mg 02/09/18 10:00 02/10/18 16:47 Norvasc - PO Not Given DAILY [facility] Calcitriol 0.25 mcg 02/09/18 10:00 02/10/18 16:34 Rocaltrol - PO 0.25 mcg DAILY [facility] Administration Calcium Acetate 667 mg 02/09/18 17:30 02/11/18 09:49 Phoslo - PO 667 mg TIDCM [facility] Administration Ergocalciferol 50,000 unit 02/15/18 10:00 Drisdol - PO We@1000 [facility] Ferrous Sulfate 325 mg 02/09/18 10:00 02/10/18 16:34 Feosol - PO 325 mg DAILY [facility] Administration Furosemide 40 mg 02/09/18 10:00 02/10/18 16:34 Lasix - PO 40 mg DAILY [facility] Administration Heparin Sodium (Porcine) 5,000 unit 02/08/18 22:00 02/11/18 05:50 Heparin - SQ 5,000 unit TID [facility] Administration Sodium Bicarbonate 650 mg 02/08/18 22:00 02/11/18 05:50 Sodium Bicarbonate - PO 650 mg TID [facility] Administration Tamsulosin HCl 0.8 mg 02/09/18 08:30 02/11/18 09:49 Flomax - PO 0.8 mg DAILY@0830 [facility] Administration Last Vital Signs Temp Pulse Resp BP Pulse Ox 97.5 F L 54 L 18 148/66 97 02/11/18 08:00 02/11/18 08:00 02/11/18 08:00 02/11/18 08:00 02/11/18 00:00 General NAD CV S1 S2 RRR Lungs CTA B/L no wheezing/rales/rhonchi CBCD WBC 4.8 K/mm3 (4.0-10.0) 02/11/18 08:08 RBC 3.30 M/mm3 (4.00-5.60) L 02/11/18 08:08 Hgb 9.7 GM/dL (11.7-16.9) L 02/11/18 08:08 Hct 30.7 % (35.4-49) L D 02/11/18 08:08 MCV 93.0 fl (80-96) 02/11/18 08:08 MCHC 31.7 g/dl (32.0-35.9) L 02/11/18 08:08 RDW 16.3 % (11.9-15.9) H 02/11/18 08:08 Plt Count 114 K/MM3 (134-434) L 02/11/18 08:08 MPV 8.0 fl (7.5-11.1) 02/11/18 08:08 ASSESSMENT AND PLAN: 67yo M with PMHHTN, Jean palsy, lymphedema, CKD stage V presented to the Er wtih vague constitutional symptoms and general well being and found to be uremic and plan to initiate HD at this time 1. Acute uremia-clinically stable. AV graft determined working. tolerated HD yesterday. plan to do abbreviated session today. nephro on board 2. 1st degree AV block- seen on EKG. no previous to compare. hx of bells palsy. Lyme titers neg. can f/u with cardio as outpatient 3. normocytic anemia- no signs of bleeding. hgb stable. likely due to chronic disease. epogen can be given wtih HD at nephrology discretion 4. lympedema- elevate legs. 5. HTN- controlled. cont home medications 6. Jean Palsy 7. DVT ppx- hep sq 8. Plans to start outpatient HD at [facility]. has not yet been arranged. pt will need to remain hospitalized until outpatient HD can be set up. hepatitis serology pending Visit type - Emergency Visit Emergency Visit: Yes ED Registration Date: 02/08/18 Care time: The patient presented to the Emergency Department on the above date and was hospitalized for further evaluation of their emergent condition. - New Patient This patient is new to me today: No - Critical Care Critical Care patient: No - Discharge Referral Referred to [facility] Med P.C.: No
--- NOTE | 2018-02-11 14:29 | PN ---
Progress Note (short form) - Note Progress Note: nephrology covering dr alford Problems 1. CKD5 2. htn 3. lymphedema s/p hemodialysis yesterday limited treatment made shorter by moving and extruding his needles ica was applied now on dialysis treatment is uneventful after careful cannulation the avf is immature and fragile meds reviewed pt examined Current Medications Amlodipine Besylate (Norvasc -) 10 mg PO DAILY [facility] Last Admin: 02/10/18 16:47 Dose: Not Given Calcitriol (Rocaltrol -) 0.25 mcg PO DAILY [facility] Last Admin: 02/10/18 16:34 Dose: 0.25 mcg Calcium Acetate (Phoslo -) 667 mg PO TIDCM [facility] Last Admin: 02/11/18 13:28 Dose: Not Given Ergocalciferol (Drisdol -) 50,000 unit PO We@1000 [facility] Ferrous Sulfate (Feosol -) 325 mg PO DAILY [facility] Last Admin: 02/10/18 16:34 Dose: 325 mg Furosemide (Lasix -) 40 mg PO DAILY [facility] Last Admin: 02/10/18 16:34 Dose: 40 mg Heparin Sodium (Porcine) (Heparin -) 5,000 unit SQ TID [facility] Last Admin: 02/11/18 05:50 Dose: 5,000 unit Sodium Bicarbonate (Sodium Bicarbonate -) 650 mg PO TID [facility] Last Admin: 02/11/18 05:50 Dose: 650 mg Tamsulosin HCl (Flomax -) 0.8 mg PO DAILY@0830 [facility] Last Admin: 02/11/18 09:49 Dose: 0.8 mg Last Vital Signs Temp Pulse Resp BP Pulse Ox 97.5 F L 54 L 18 148/66 97 02/11/18 08:00 02/11/18 08:00 02/11/18 08:00 02/11/18 08:00 02/11/18 00:00 Lungs clear Heart reg ext mild edema CBC, BMP 02/11/18 08:08 02/10/18 06:00 IMP esrd elective start of dialysis Plan- Prepare a dialysis packet
[2018-02-11] MEDS: CALCITRIOL 0.25 MCG CAPSULE (FP) PO SCH (16:33)
[2018-02-11] MEDS: FERROUS SO4 325 MG TABLET (FP) PO SCH (16:33)
[2018-02-11] MEDS: amLODIPine BESYLATE 10 MG TABLET (FP) PO SCH (16:33)
[2018-02-11] MEDS: FUROSEMIDE 40 MG TABLET (FP) PO SCH (16:33)
[2018-02-11] MEDS ORDERED: IBUPROFEN 600 MG TABLET (FP) PO ONE (20:56)
[2018-02-12] MEDS: SODIUM BICARBONATE 650 MG TABLET PO SCH ×3 (06:12→21:26)
[2018-02-12] MEDS: HEPARIN NA (PORCINE) 5,000 UNITS/ML 1ML VIAL SQ SCH ×3 (06:12→21:26)
[2018-02-12 06:38] LABS: HBSAG SCREEN Negative (Negative); HEP B CORE AB, TOT Positive (Negative)
--- NOTE | 2018-02-12 09:09 | PN ---
Teaching Attending Note Name of Resident: Aditya Lopez ATTENDING PHYSICIAN STATEMENT I saw and evaluated the patient. I reviewed the resident's note and discussed the case with the resident. I agree with the resident's findings and plan as documented. SUBJECTIVE:asymptomatic. tolerated HD well yesterday. denies CP, SOB, fever, chills, N/V/C/D OBJECTIVE: Last Vital Signs Temp Pulse Resp BP Pulse Ox 97.8 F 53 L 18 117/72 98 02/12/18 05:00 02/12/18 05:00 02/12/18 05:00 02/12/18 05:00 02/11/18 23:33 General NAD lungs CTA B/L no wheezing/raeles/rhonchi ASSESSMENT AND PLAN: 67yo M with PMHHTN, [place] palsy, lymphedema, CKD stage V presented to the Er wtih vague constitutional symptoms and general well being and found to be uremic and plan to initiate HD at this time 1. Acute uremia-clinically stable. AV graft working. tolerated HD yesterday. will need HD to be set up as outpatient. no one at [facility] to set it up over the weekend. will be completed tomorrow and then will get HD tomorrow pending on schedule. nephro on board 2. 1st degree AV block- seen on EKG. no previous to compare. hx of bells palsy. Lyme titers neg. can f/u with cardio as outpatient 3. normocytic anemia- no signs of bleeding. hgb stable. likely due to chronic disease. epogen can be given wtih HD at nephrology discretion 4. lympedema- elevate legs. 5. HTN- controlled. cont home medications 6. [place] Palsy 7. DVT ppx- hep sq 8. will remained hospitalized until outpatient HD can be arranged.
[2018-02-12] MEDS: TAMSULOSIN HCL 0.4 MG CAP PO SCH (09:14)
[2018-02-12] MEDS: CALCITRIOL 0.25 MCG CAPSULE (FP) PO SCH (09:14)
[2018-02-12] MEDS: amLODIPine BESYLATE 10 MG TABLET (FP) PO SCH ×2 (09:14→09:28)
[2018-02-12] MEDS: FERROUS SO4 325 MG TABLET (FP) PO SCH (09:15)
[2018-02-12] MEDS: FUROSEMIDE 40 MG TABLET (FP) PO SCH (09:15)
[2018-02-12] MEDS: CALCIUM ACETATE 667 MG CAPSULE (FP) PO SCH ×3 (09:17→18:06)
--- NOTE | 2018-02-12 10:49 | PN ---
Physical Exam: SUBJECTIVE: Patient seen and examined at bedside. Underwent HD yesterday.Tolerated 1.2kgs fluid removal. No acute events overnight. 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 ABDOMEN: Obese, NDNT EXTREMITIES: Lymphadema R lower extremity, venous stasis b/l LE. Laboratory Results - last 24 hr 02/10/18 14:00 Hepatitis A Ab Total Negative Hep Bs Antigen Negative Hep Bs Antibody Reactive Hep B Core Total Ab Positive H Hep C Ab Diagnostic <0.1 Active Medications Generic Name Dose Route Start Last Admin Trade Name Freq PRN Reason Stop Dose Admin Amlodipine Besylate 10 mg 02/09/18 10:00 02/12/18 09:28 Norvasc - PO Not Given DAILY [facility] Calcitriol 0.25 mcg 02/09/18 10:00 02/12/18 09:14 Rocaltrol - PO 0.25 mcg DAILY [facility] Administration Calcium Acetate 667 mg 02/09/18 17:30 02/12/18 09:17 Phoslo - PO 667 mg TIDCM [facility] Administration Ergocalciferol 50,000 unit 02/15/18 10:00 Drisdol - PO We@1000 [facility] Ferrous Sulfate 325 mg 02/09/18 10:00 02/12/18 09:15 Feosol - PO 325 mg DAILY [facility] Administration Furosemide 40 mg 02/09/18 10:00 02/12/18 09:15 Lasix - PO 40 mg DAILY [facility] Administration Heparin Sodium (Porcine) 5,000 unit 02/08/18 22:00 02/12/18 06:12 Heparin - SQ 5,000 unit TID [facility] Administration Sodium Bicarbonate 650 mg 02/08/18 22:00 02/12/18 06:12 Sodium Bicarbonate - PO 650 mg TID [facility] Administration Tamsulosin HCl 0.8 mg 02/09/18 08:30 02/12/18 09:14 Flomax - PO 0.8 mg DAILY@0830 [facility] Administration ASSESSMENT/PLAN: 67 y/o gentleman with a significant past medical history of CKD stage V, HTN, chronic lymphadema RLE, and Montoya's palsy admitted for dialysis #Weakness and SOB: resolved -Nephrology, Dr Tran on board. HD yesterday 02/11/18 -Continue Calciferol, Ferrous Sulfate, NaHCO3 #1st Degree AV Block: stable - lyme titers negative, f/u outpatient cardiology upon discharge #Hypertension: stable -continue Norvasc 10 mg Daily #Benign Prostatic Hyperplasia -Tamsulosin 0.8 mg #FEN No Fluids Monitor Electrolytes Renal Diet #Prophylaxis -Heparin 5,000 U SQ TID #Disposition: -For D/C pending HD seat availability. Visit type - Emergency Visit Emergency Visit: Yes ED Registration Date: 02/08/18 Care time: The patient presented to the Emergency Department on the above date and was hospitalized for further evaluation of their emergent condition. - New Patient This patient is new to me today: No - Critical Care Critical Care patient: No - Discharge Referral Referred to [facility] Med P.C.: No
[2018-02-12] MEDS ORDERED: INSULIN (NOVOLOG) ASPART 100 UNITS/ML 10ML VIAL ONE (16:47)
--- NOTE | 2018-02-12 19:07 | PN ---
Progress Note (short form) - Note Progress Note: nephrology covering dr alford Problems 1. CKD5 2. htn 3. lymphedema s/p hemodialysis yesterday limited treatment made shorter by moving and extruding his needles ica was applied now on dialysis treatment is uneventful after careful cannulation the avf is immature and fragile meds reviewed pt examined Active Medications Amlodipine Besylate (Norvasc -) 10 mg PO DAILY [facility] Last Admin: 02/12/18 09:28 Dose: Not Given Calcitriol (Rocaltrol -) 0.25 mcg PO DAILY [facility] Last Admin: 02/12/18 09:14 Dose: 0.25 mcg Calcium Acetate (Phoslo -) 667 mg PO TIDCM [facility] Last Admin: 02/12/18 18:06 Dose: 667 mg Ergocalciferol (Drisdol -) 50,000 unit PO We@1000 [facility] Ferrous Sulfate (Feosol -) 325 mg PO DAILY [facility] Last Admin: 02/12/18 09:15 Dose: 325 mg Furosemide (Lasix -) 40 mg PO DAILY [facility] Last Admin: 02/12/18 09:15 Dose: 40 mg Heparin Sodium (Porcine) (Heparin -) 5,000 unit SQ TID [facility] Last Admin: 02/12/18 14:34 Dose: 5,000 unit Sodium Bicarbonate (Sodium Bicarbonate -) 650 mg PO TID [facility] Last Admin: 02/12/18 14:34 Dose: 650 mg Tamsulosin HCl (Flomax -) 0.8 mg PO DAILY@0830 [facility] Last Admin: 02/12/18 09:14 Dose: 0.8 mg Last Vital Signs Temp Pulse Resp BP Pulse Ox 98.2 F 56 L 18 135/76 98 02/12/18 16:53 02/12/18 16:53 02/12/18 16:53 02/12/18 16:53 02/12/18 16:00 Lungs clear Heart reg ext lymphedema CBC, BMP 02/11/18 08:08 02/10/18 06:00 IMP esrd elective start of dialysis Plan- Prepare a dialysis packet for outpatient treatments
[2018-02-13] MEDS: SODIUM BICARBONATE 650 MG TABLET PO SCH ×3 (06:21→22:02)
[2018-02-13] MEDS: HEPARIN NA (PORCINE) 5,000 UNITS/ML 1ML VIAL SQ SCH ×3 (06:21→22:02)
[2018-02-13] MEDS: CALCIUM ACETATE 667 MG CAPSULE (FP) PO SCH ×3 (10:00→17:57)
[2018-02-13] MEDS: CALCITRIOL 0.25 MCG CAPSULE (FP) PO SCH (10:00)
[2018-02-13] MEDS: FERROUS SO4 325 MG TABLET (FP) PO SCH (10:00)
[2018-02-13] MEDS: TAMSULOSIN HCL 0.4 MG CAP PO SCH (10:00)
[2018-02-13] MEDS: FUROSEMIDE 40 MG TABLET (FP) PO SCH (10:00)
[2018-02-13] MEDS: amLODIPine BESYLATE 10 MG TABLET (FP) PO SCH (10:02)
--- NOTE | 2018-02-13 12:34 | PN ---
Teaching Attending Note Name of Resident: Aditya Lopez ATTENDING PHYSICIAN STATEMENT I saw and evaluated the patient. I reviewed the resident's note and discussed the case with the resident. I agree with the resident's findings and plan as documented. SUBJECTIVE:asymptomatic. denies CP, SOB, fever, chills, N/V/C/D OBJECTIVE: Last Vital Signs Temp Pulse Resp BP Pulse Ox 98.0 F 65 20 119/65 97 02/13/18 04:00 02/13/18 04:00 02/13/18 04:00 02/13/18 04:00 02/13/18 00:00 General NAD lungs CTA B/L no wheezing/raeles/rhonchi ASSESSMENT AND PLAN: 67yo M with PMHHTN, [place] palsy, lymphedema, CKD stage V presented to the Er wtih vague constitutional symptoms and general well being and found to be uremic and plan to initiate HD at this time 1. Acute uremia-clinically stable. AV graft working. tolerated HD. will need HD to be set up as outpatient.awaiting HD to be arranged as outpatient. nephro on board 2. 1st degree AV block- seen on EKG. no previous to compare. hx of bells palsy. Lyme titers neg. can f/u with cardio as outpatient 3. normocytic anemia- no signs of bleeding. hgb stable. likely due to chronic disease. epogen can be given wt HD at nephrology discretion 4. lympedema- elevate legs. 5. HTN- controlled. cont home medications 6. [place] Palsy 7. DVT ppx- hep sq 8. will remained hospitalized until outpatient HD can be arranged.
[2018-02-13] MEDS ORDERED: SODIUM CHLORIDE 250 ML IV PRN (16:43)
--- NOTE | 2018-02-13 16:43 | PN ---
Progress Note, Physician History of Present Illness: Pt seen and examined at bedside. He is awake and alert. He tolerated HD over the weekend. - Current Medication List Current Medications: Active Medications Amlodipine Besylate (Norvasc -) 10 mg PO DAILY [facility] Last Admin: 02/13/18 10:02 Dose: 10 mg Calcitriol (Rocaltrol -) 0.25 mcg PO DAILY [facility] Last Admin: 02/13/18 10:00 Dose: 0.25 mcg Calcium Acetate (Phoslo -) 667 mg PO TIDCM [facility] Last Admin: 02/13/18 14:45 Dose: 667 mg Ergocalciferol (Drisdol -) 50,000 unit PO We@1000 [facility] Ferrous Sulfate (Feosol -) 325 mg PO DAILY [facility] Last Admin: 02/13/18 10:00 Dose: 325 mg Furosemide (Lasix -) 40 mg PO DAILY [facility] Last Admin: 02/13/18 10:00 Dose: 40 mg Heparin Sodium (Porcine) (Heparin -) 5,000 unit SQ TID [facility] Last Admin: 02/13/18 14:45 Dose: 5,000 unit Sodium Bicarbonate (Sodium Bicarbonate -) 650 mg PO TID [facility] Last Admin: 02/13/18 14:45 Dose: 650 mg Tamsulosin HCl (Flomax -) 0.8 mg PO DAILY@0830 [facility] Last Admin: 02/13/18 10:00 Dose: 0.8 mg - Objective Vital Signs: Vital Signs Temperature 97.4 F L 02/13/18 14:22 Pulse Rate 58 L 02/13/18 14:22 Respiratory Rate 20 02/13/18 14:22 Blood Pressure 120/58 L 02/13/18 14:22 O2 Sat by Pulse Oximetry (%) 97 02/13/18 08:00 Constitutional: Yes: Calm Eyes: Yes: Conjunctiva Clear HENT: Yes: Atraumatic Cardiovascular: Yes: S1, S2 Respiratory: Yes: CTA Bilaterally Gastrointestinal: Yes: Soft Genitourinary: Yes: WNL Extremities: Yes: Other (lymphedema) Neurological: Yes: Oriented Psychiatric: Yes: Oriented Labs: CBC, BMP 02/11/18 08:08 02/10/18 06:00 INR, PTT INR 1.18 (0.83-1.09) H 02/09/18 06:30 Problem List - Problems (1) CKD (chronic kidney disease) stage 5, GFR less than 15 ml/min Code(s): N18.5 - CHRONIC KIDNEY DISEASE, STAGE 5 Assessment/Plan Current Medications Generic Name Dose Route Start Last Admin Trade Name Anita PRN Reason Stop Dose Admin Amlodipine Besylate 10 mg 02/09/18 10:00 02/13/18 10:02 Norvasc - PO 10 mg DAILY [facility] Administration Calcitriol 0.25 mcg 02/09/18 10:00 02/13/18 10:00 Rocaltrol - PO 0.25 mcg DAILY [facility] Administration Calcium Acetate 667 mg 02/09/18 17:30 02/13/18 14:45 Phoslo - PO 667 mg TIDCM [facility] Administration Ergocalciferol 50,000 unit 02/15/18 10:00 Drisdol - PO We@1000 [facility] Ferrous Sulfate 325 mg 02/09/18 10:00 02/13/18 10:00 Feosol - PO 325 mg DAILY [facility] Administration Furosemide 40 mg 02/09/18 10:00 02/13/18 10:00 Lasix - PO 40 mg DAILY [facility] Administration Heparin Sodium (Porcine) 5,000 unit 02/08/18 22:00 02/13/18 14:45 Heparin - SQ 5,000 unit TID [facility] Administration Sodium Bicarbonate 650 mg 02/08/18 22:00 02/13/18 14:45 Sodium Bicarbonate - PO 650 mg TID [facility] Administration Tamsulosin HCl 0.8 mg 02/09/18 08:30 02/13/18 10:00 Flomax - PO 0.8 mg DAILY@0830 [facility] Administration Laboratory Tests 02/10/18 14:00 Hepatitis A Ab Total Negative Hep Bs Antigen Negative Hep Bs Antibody Reactive Hep B Core Total Ab Positive H Impression 1. CKD 2. htn 3. lymphedema 4. BPH 5. anemia Plan - HD in am - pending placement as out at [facility] - d/c po bicarb - monitor bp - will follow Dr Tran
--- NOTE | 2018-02-13 18:22 | PN ---
Physical Exam: SUBJECTIVE: Patient seen and examined at bedside. No acute events overnight. Denies any sob, chest pain, lightheadedness, nausea or vomiting. OBJECTIVE: Vital Signs Period Temp Pulse Resp BP Sys/Marsh Pulse Ox Last 24 Hr 97.4 F-98.4 F 57-66 18-20 116-129/57-79 97-97 GENERAL: Awake Alert NAD HEAD: NC/AT EYES: PERRLA, EOMI LUNGS: CTA B/L No wheezing rhonchi or rales HEART: Murmur appreciated. 2/2 AV fistula thrill? ABDOMEN: Obese NDNT EXTREMITIES: Lymphadema Right LE, Venous stasis/dermatitis B/L. NEUROLOGICAL: Facial Nerve impaired 2/2 Montoya's Palsy Active Medications Generic Name Dose Route Start Last Admin Trade Name Freq PRN Reason Stop Dose Admin Amlodipine Besylate 10 mg 02/09/18 10:00 02/13/18 10:02 Norvasc - PO 10 mg DAILY [facility] Administration Calcitriol 0.25 mcg 02/09/18 10:00 02/13/18 10:00 Rocaltrol - PO 0.25 mcg DAILY [facility] Administration Calcium Acetate 667 mg 02/09/18 17:30 02/13/18 17:57 Phoslo - PO 667 mg TIDCM [facility] Administration Epoetin Gerardo 3,000 unit 02/14/18 16:43 Epogen - IVPUSH 02/14/18 16:44 ONCE ONE Ergocalciferol 50,000 unit 02/15/18 10:00 Drisdol - PO We@1000 [facility] Ferrous Sulfate 325 mg 02/09/18 10:00 02/13/18 10:00 Feosol - PO 325 mg DAILY [facility] Administration Furosemide 40 mg 02/09/18 10:00 02/13/18 10:00 Lasix - PO 40 mg DAILY [facility] Administration Heparin Sodium (Porcine) 5,000 unit 02/08/18 22:00 02/13/18 14:45 Heparin - SQ 5,000 unit TID [facility] Administration Sodium Chloride 250 mls @ 3,000 mls/hr 02/13/18 16:43 Normal Saline - IV 02/14/18 16:43 PRN PRN Hypotension during Dialysis Sodium Bicarbonate 650 mg 02/08/18 22:00 02/13/18 14:45 Sodium Bicarbonate - PO 650 mg TID [facility] Administration Tamsulosin HCl 0.8 mg 02/09/18 08:30 02/13/18 10:00 Flomax - PO 0.8 mg DAILY@0830 [facility] Administration ASSESSMENT/PLAN: 67 y/o gentleman with a significant past medical history of CKD stage V, HTN, chronic lymphadema RLE, and Montoya's palsy admitted for dialysis #CKD: -Nephrology, Dr Tran on board. HD 02/11/18 -Continue Calciferol, Ferrous Sulfate, NaHCO3 discontinued today 02/13/18 -HD in AM -Awaiting HD Seat. Either MWF schedule or T,TH,Sat. -Troponin 0.03 in ED #1st Degree AV Block: stable - lyme titers negative, f/u outpatient cardiology upon discharge #Hypertension: stable -continue Norvasc 10 mg Daily #Benign Prostatic Hyperplasia -Tamsulosin 0.8 mg #FEN No Fluids Monitor Electrolytes Renal Diet #Prophylaxis -Heparin 5,000 U SQ TID #Disposition: -For D/C pending HD seat availability. Visit type - Emergency Visit Emergency Visit: Yes ED Registration Date: 02/08/18 Care time: The patient presented to the Emergency Department on the above date and was hospitalized for further evaluation of their emergent condition. - New Patient This patient is new to me today: No - Critical Care Critical Care patient: No - Discharge Referral Referred to [facility] Med P.C.: No
[2018-02-14] MEDS: HEPARIN NA (PORCINE) 5,000 UNITS/ML 1ML VIAL SQ SCH ×2 (06:31→14:22)
[2018-02-14] MEDS: SODIUM BICARBONATE 650 MG TABLET PO SCH (06:31)
[2018-02-14] MEDS: CALCIUM ACETATE 667 MG CAPSULE (FP) PO SCH ×3 (08:31→17:28)
[2018-02-14] MEDS: TAMSULOSIN HCL 0.4 MG CAP PO SCH (08:31)
[2018-02-14 09:46] VITALS: TEMP 97.7
[2018-02-14 09:51] LABS: HEMATOCRIT 28.1 % (35.4-49); HEMOGLOBIN 8.8 GM/dL (11.7-16.9); MCH 29.1 pg (25.7-33.7); MCHC 31.4 g/dl (32.0-35.9); MEAN CELL VOLUME 92.6 fl (80-96); MEAN PLT VOLUME 8.5 fl (7.5-11.1); PLATELET COUNT 113 K/MM3 (134-434); RBC 3.04 M/mm3 (4.00-5.60); RDW 16.2 % (11.9-15.9); WHITE BLOOD COUNT 4.3 K/mm3 (4.0-10.0)
[2018-02-14 11:00] LABS: ANION GAP 12 MMOL/L (8-16); BLOOD UREA NITROGEN 63 mg/dL (7-18); CALCIUM 8.5 mg/dL (8.5-10.1); CHLORIDE 104 mmol/L (98-107); CO2 24 mmol/L (21-32); CREATININE 5.9 mg/dL (0.55-1.3); GLUCOSE,RANDOM 91 mg/dL (74-106); POTASSIUM 4.2 mmol/L (3.5-5.1); SODIUM 141 mmol/L (136-145)
[2018-02-14 11:58] VITALS: PULSE 53
[2018-02-14] MEDS ORDERED: EPOETIN ALFA 3,000 UNIT/1 ML ML IVPUSH ONE (12:00)
[2018-02-14 12:21] VITALS: BP 145/85
--- NOTE | 2018-02-14 13:12 | PN ---
Physical Exam: SUBJECTIVE: Patient seen and examined OBJECTIVE: Vital Signs Period Temp Pulse Resp BP Sys/Marsh Pulse Ox Last 24 Hr 97.4 F-98.8 F 49-74 18-20 120-156/54-85 97-97 GENERAL: The patient is awake, alert, and fully oriented, in no acute distress. HEAD: Normal with no signs of trauma. EYES: PERRL, extraocular movements intact, sclera anicteric, conjunctiva clear. No ptosis. ENT: Ears normal, nares patent, oropharynx clear without exudates, moist mucous membranes. NECK: Trachea midline, full range of motion, supple. LUNGS: Breath sounds equal, clear to auscultation bilaterally, no wheezes, no crackles, no accessory muscle use. HEART: Regular rate and rhythm, S1, S2 without murmur, rub or gallop. ABDOMEN: Soft, nontender, nondistended, normoactive bowel sounds, no guarding, no rebound, no hepatosplenomegaly, no masses. EXTREMITIES: 2+ pulses, warm, well-perfused, no edema. NEUROLOGICAL: Cranial nerves II through XII grossly intact. Normal speech, gait not observed. PSYCH: Normal mood, normal affect. SKIN: Warm, dry, normal turgor, no rashes or lesions noted Laboratory Results - last 24 hr 02/14/18 02/14/18 09:10 09:10 WBC 4.3 RBC 3.04 L Hgb 8.8 L Hct 28.1 L MCV 92.6 MCH 29.1 MCHC 31.4 L RDW 16.2 H Plt Count 113 L MPV 8.5 Sodium 141 Potassium 4.2 Chloride 104 Carbon Dioxide 24 Anion Gap 12 BUN 63 H Creatinine 5.9 H Creat Clearance w eGFR 9.55 Random Glucose 91 Calcium 8.5 Active Medications Generic Name Dose Route Start Last Admin Trade Name Freq PRN Reason Stop Dose Admin Amlodipine Besylate 10 mg 02/09/18 10:00 02/13/18 10:02 Norvasc - PO 10 mg DAILY [facility] Administration Calcitriol 0.25 mcg 02/09/18 10:00 02/13/18 10:00 Rocaltrol - PO 0.25 mcg DAILY [facility] Administration Calcium Acetate 667 mg 02/09/18 17:30 02/14/18 08:31 Phoslo - PO 667 mg TIDCM [facility] Administration Ergocalciferol 50,000 unit 02/15/18 10:00 Drisdol - PO We@1000 [facility] Ferrous Sulfate 325 mg 02/09/18 10:00 02/13/18 10:00 Feosol - PO 325 mg DAILY [facility] Administration Furosemide 40 mg 02/09/18 10:00 02/13/18 10:00 Lasix - PO 40 mg DAILY [facility] Administration Heparin Sodium (Porcine) 5,000 unit 02/08/18 22:00 02/14/18 06:31 Heparin - SQ 5,000 unit TID [facility] Administration Sodium Chloride 250 mls @ 3,000 mls/hr 02/13/18 16:43 Normal Saline - IV 02/14/18 16:43 PRN PRN Hypotension during Dialysis Sodium Bicarbonate 650 mg 02/08/18 22:00 02/14/18 06:31 Sodium Bicarbonate - PO 650 mg TID [facility] Administration Tamsulosin HCl 0.8 mg 02/09/18 08:30 02/14/18 08:31 Flomax - PO 0.8 mg DAILY@0830 [facility] Administration ASSESSMENT/PLAN:
--- NOTE | 2018-02-14 13:46 | PN ---
Progress Note, Physician History of Present Illness: Pt seen and examined at bedside. He is awake and alert. He is tolerating HD. - Current Medication List Current Medications: Active Medications Amlodipine Besylate (Norvasc -) 10 mg PO DAILY [facility] Last Admin: 02/13/18 10:02 Dose: 10 mg Calcitriol (Rocaltrol -) 0.25 mcg PO DAILY [facility] Last Admin: 02/13/18 10:00 Dose: 0.25 mcg Calcium Acetate (Phoslo -) 667 mg PO TIDCM [facility] Last Admin: 02/14/18 08:31 Dose: 667 mg Ergocalciferol (Drisdol -) 50,000 unit PO We@1000 [facility] Ferrous Sulfate (Feosol -) 325 mg PO DAILY [facility] Last Admin: 02/13/18 10:00 Dose: 325 mg Furosemide (Lasix -) 40 mg PO DAILY [facility] Last Admin: 02/13/18 10:00 Dose: 40 mg Heparin Sodium (Porcine) (Heparin -) 5,000 unit SQ TID [facility] Last Admin: 02/14/18 06:31 Dose: 5,000 unit Sodium Chloride (Normal Saline -) 250 mls @ 3,000 mls/hr IV PRN PRN PRN Reason: Hypotension during Dialysis Stop: 02/14/18 16:43 Sodium Bicarbonate (Sodium Bicarbonate -) 650 mg PO TID [facility] Last Admin: 02/14/18 06:31 Dose: 650 mg Tamsulosin HCl (Flomax -) 0.8 mg PO DAILY@0830 [facility] Last Admin: 02/14/18 08:31 Dose: 0.8 mg - Objective Vital Signs: Vital Signs Temperature 97.7 F 02/14/18 09:05 Pulse Rate 53 L 02/14/18 12:21 Respiratory Rate 18 02/14/18 12:21 Blood Pressure 145/85 02/14/18 12:21 O2 Sat by Pulse Oximetry (%) 97 02/14/18 00:00 Constitutional: Yes: Calm Eyes: Yes: Conjunctiva Clear HENT: Yes: Atraumatic Neck: Yes: Supple Cardiovascular: Yes: S1, S2 Respiratory: Yes: CTA Bilaterally Gastrointestinal: Yes: Soft Genitourinary: Yes: WNL Extremities: Yes: Other (lymphedema) Edema: Yes Neurological: Yes: Oriented Psychiatric: Yes: Oriented Labs: CBC, BMP 02/14/18 09:10 02/14/18 09:10 INR, PTT INR 1.18 (0.83-1.09) H 02/09/18 06:30 Problem List - Problems (1) CKD (chronic kidney disease) stage 5, GFR less than 15 ml/min Code(s): N18.5 - CHRONIC KIDNEY DISEASE, STAGE 5 Assessment/Plan Current Medications Generic Name Dose Route Start Last Admin Trade Name Freq PRN Reason Stop Dose Admin Amlodipine Besylate 10 mg 02/09/18 10:00 02/13/18 10:02 Norvasc - PO 10 mg DAILY [facility] Administration Calcitriol 0.25 mcg 02/09/18 10:00 02/13/18 10:00 Rocaltrol - PO 0.25 mcg DAILY [facility] Administration Calcium Acetate 667 mg 02/09/18 17:30 02/14/18 08:31 Phoslo - PO 667 mg TIDCM [facility] Administration Ergocalciferol 50,000 unit 02/15/18 10:00 Drisdol - PO We@1000 [facility] Ferrous Sulfate 325 mg 02/09/18 10:00 02/13/18 10:00 Feosol - PO 325 mg DAILY [facility] Administration Furosemide 40 mg 02/09/18 10:00 02/13/18 10:00 Lasix - PO 40 mg DAILY [facility] Administration Heparin Sodium (Porcine) 5,000 unit 02/08/18 22:00 02/14/18 06:31 Heparin - SQ 5,000 unit TID [facility] Administration Sodium Chloride 250 mls @ 3,000 mls/hr 02/13/18 16:43 Normal Saline - IV 02/14/18 16:43 PRN PRN Hypotension during Dialysis Sodium Bicarbonate 650 mg 02/08/18 22:00 02/14/18 06:31 Sodium Bicarbonate - PO 650 mg TID [facility] Administration Tamsulosin HCl 0.8 mg 02/09/18 08:30 02/14/18 08:31 Flomax - PO 0.8 mg DAILY@0830 [facility] Administration Impression 1. CKD 2. htn 3. lymphedema 4. BPH 5. anemia Plan - HD today - d/c sodium bicarb - [facility] - monitor bp - will follow Dr Tran
--- NOTE | 2018-02-14 13:51 | DS ---
Physical Exam: SUBJECTIVE: Patient seen and examined at bedside. Underwent HD homer. Offers no complaints. Ready for D/C. OBJECTIVE: Vital Signs Period Temp Pulse Resp BP Sys/Marsh Pulse Ox Last 24 Hr 97.4 F-98.8 F 49-74 18-20 120-156/54-85 97-97 PHYSICAL EXAM GENERAL: AAOx3, NAD, Resting in bed comfortably. HEAD: NC/AT EYES: PERRLA, EOMI LUNGS: CTA B/L No wheezing rhonchi or rales, Good inspiratory effort HEART: Murmur appreciated. 2/2 AV fistula thrill? ABDOMEN: Obese NDNT, BS+ EXTREMITIES: Lymphadema Right LE, Venous stasis/dermatitis B/L. 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 Pt was also hyperkalemic. Pt's fistula was assessed and deemed usable for dialysis. Pt underwent multiple rounds of dialysis and was will continue his HD treatment at [facility] on [place], [place]. While in hospital, pt was found to have a 1st degree heart block. This in addition to his history of Montoya's palsy prompted our medical team to order lyme titers. Lyme titers were negative. Amlodipine was discontinued and pt was started on Hydralazine 25 mg PO twice per day. Sodium Bicarb was discontinued. Minutes to complete discharge: 35 Discharge Summary Reason For Visit: SHORTNESS OF BREATH Current Active Problems CKD (chronic kidney disease) stage 5, GFR less than 15 ml/min (Acute) SOB (shortness of breath) (Acute) Uremia (Acute) Condition: Improved - Instructions Diet, Activity, Other Instructions: You were admitted to the hospital to start dialysis because of a condition called uremia due to your kidneys not functioning properly. Your fistula was assessed and was ready to be used and you had dialysis here. You should follow up with your primary care doctor in 1 week- Dr Sotomayor Follow up with nephrology next week- Dr Tran, referral has been attached Follow up with Vascular surgeon Dr Bhatt within 1 week. Return to the Emergency Department if you develop chest pain or shortness of breath or fever. Continue all your medications as advised on the discharge list. Amlodipine was discontinued and you were started on Hydralazine 25 mg PO twice per day. Stop taking Sodium Bicarb. -Dialysis has been set up for you and will be at [facility] starting this Tuesday02/17/18 at 3 pm : [address] [place] [address] Referrals: Yunior Tran MD [Staff Physician] - Dewayne Sotomayor [Primary Care Provider] - Xavi Bhatt MD [Staff Physician] - Disposition: HOME - Home Medications Comprehensive Discharge Medication List: Ambulatory Orders Amlodipine Besylate [Norvasc -] 10 mg PO DAILY 03/12/14 Sodium Bicarbonate 650 mg PO TID 03/12/14 Ergocalciferol (Vitamin D2) [Vitamin D] 50,000 unit PO WEEKLY 03/13/14 Furosemide [Lasix -] 40 mg PO DAILY 03/13/14 Calcitrol 1 tab PO TID 07/05/16 Ferrous Sulfate 325 mg PO DAILY 06/07/17 Tamsulosin HCl 0.8 mg PO DAILY #0 cap 02/11/18 Calcium Acetate [Phoslo -] 667 mg PO TIDCM capsule 02/13/18 Sodium Bicarbonate - 650 mg PO TID tablet 02/13/18 This patient is new to me today: No Emergency Visit: Yes ED Registration Date: 02/14/18 Care time: The patient presented to the Emergency Department on the above date and was hospitalized for further evaluation of their emergent condition. Critical Care patient: No - Discharge Referral Referred to [facility] No
--- NOTE | 2018-02-14 14:15 | PN ---
Teaching Attending Note Name of Resident: Aditya Lopez ATTENDING PHYSICIAN STATEMENT I saw and evaluated the patient. I reviewed the resident's note and discussed the case with the resident. I agree with the resident's findings and plan as documented with exceptions below. SUBJECTIVE: Patient seen and examined. no complaints, getting HD. OBJECTIVE: Vital Signs Period Temp Pulse Resp BP Sys/Marsh Pulse Ox Last 24 Hr 97.4 F-98.8 F 49-74 18-20 120-156/54-85 97-97 Intake & Output 02/11/18 02/12/18 02/13/18 02/14/18 23:59 23:59 23:59 23:59 Intake Total 392 616 9479 Balance 231 633 1869 Weight 276 lb 6 oz 273 lb 7 oz 272 lb 1.6 oz 270 lb 14.4 oz General: sitting in bed in no acute distress Chest: CTAB, no rales or wheezing Abdomen:soft, obese, NT Extremities: no edema, Left AV fistula being used for HD currently Home Medications Medication Instructions Recorded Amlodipine Besylate [Norvasc -] 10 mg PO DAILY 03/12/14 Ergocalciferol (Vitamin D2) 50,000 unit PO WEEKLY 03/13/14 [Vitamin D] Furosemide [Lasix -] 40 mg PO DAILY 03/13/14 Calcitrol 1 tab PO TID 07/05/16 Ferrous Sulfate 325 mg PO DAILY 06/07/17 Tamsulosin HCl 0.8 mg PO DAILY #0 cap 02/11/18 Calcium Acetate [Phoslo -] 667 mg PO TIDCM capsule 02/13/18 Laboratory Results - last 24 hr 02/14/18 02/14/18 09:10 09:10 WBC 4.3 RBC 3.04 L Hgb 8.8 L Hct 28.1 L MCV 92.6 MCH 29.1 MCHC 31.4 L RDW 16.2 H Plt Count 113 L MPV 8.5 Sodium 141 Potassium 4.2 Chloride 104 Carbon Dioxide 24 Anion Gap 12 BUN 63 H Creatinine 5.9 H Creat Clearance w eGFR 9.55 Random Glucose 91 Calcium 8.5 ASSESSMENT AND PLAN: 67yo M with PMHHTN, Almo palsy, lymphedema, CKD stage V presented to the Er wtih vague constitutional symptoms and general well being and found to be uremic and plan to initiate HD at this time -Uremia s/p HD. -1st degree AV block -Normocytic anemia -Chronic lymphedema -HTN -Montoya's palsy Plan: NO acute concerns, OUtpatient HD arranged for Tuesday, discussed with jose Winter for d/c with next HD on Tuesday. Discussed with patient and all questions answered. d/c home with outpatient follow up.
[2018-02-14] MEDS: amLODIPine BESYLATE 10 MG TABLET (FP) PO SCH (14:20)
[2018-02-14] MEDS: CALCITRIOL 0.25 MCG CAPSULE (FP) PO SCH (14:22)
[2018-02-14] MEDS: FERROUS SO4 325 MG TABLET (FP) PO SCH (14:22)
[2018-02-14] MEDS: FUROSEMIDE 40 MG TABLET (FP) PO SCH (14:22)
[2018-02-15] MEDS ORDERED: ERGOCALCIFEROL (VITAMIN D2) 50,000 UNIT CAPSULE (FP) PO SCH (10:00)
== END 2018-02-14 18:46 | disposition home or self-care (01) | DRG 682 ==
LOC: JER 15:52 → JERBED 17:48 → J7W 23:16 → OBSVTOIN 02-14 10:18
PROVIDERS: ADMIT Internal Medicine; ATTEND Hospitalist
PROC: 5A1D70Z Performance of Urinary Filtration, Intermittent, Less than 6 Hours Per Day (ICD-10-PCS; principal; 2018-02-14)
DX: I12.0 Hypertensive chronic kidney disease with stage 5 chronic kidney disease or end stage renal disease (principal); N18.6 End stage renal disease; I89.0 Lymphedema, not elsewhere classified; G51.0 Bell's palsy; E87.5 Hyperkalemia; I11.0 Hypertensive heart disease with heart failure; N40.0 Benign prostatic hyperplasia without lower urinary tract symptoms; D64.9 Anemia, unspecified; L30.8 Other specified dermatitis; Z99.2 Dependence on renal dialysis
CPT/HCPCS: 36415; 71046-TC-FY; 80048; 80053; 81003; 81015; 82550; 83735; 84100; 84484; 85025; 85027; 85610; 85730; 86618; 86704; 86706; 86708; 86803; 87086; 87340; 90670; 93005; 93010; 99283-25; G0378; J0885; J1644

== ENCOUNTER 2021-03-17 10:38 | Observation (INO) | payer OTHER, BC ==
[2021-03-17] MEDS ORDERED: MAG HYDROX/AL HYDROX/SIMETH 30 ML UNIT-DOSE CUP PO ONE (12:45)
[2021-03-17] MEDS ORDERED: MAG HYDROX/AL HYDROX/SIMETH 30 ML UNIT-DOSE CUP ONE (12:54)
[2021-03-17] MEDS ORDERED: ACETAMINOPHEN 1000 MG/100 ML VIAL IVPB ONE (13:17)
[2021-03-17] MEDS ORDERED: ACETAMINOPHEN INJECTION 100 ML IVPB ONE (13:23)
[2021-03-17] MEDS ORDERED: SODIUM CHLORIDE 0.9% 500 ML INFUS.BAG IV ONE (13:57)
[2021-03-17 14:32] LABS: HEMATOCRIT 34.9 % (35.4-49); HEMOGLOBIN 11.8 GM/dL (11.7-16.9); MCH 31.1 pg (25.7-33.7); MCHC 33.8 g/dl (32.0-35.9); MEAN PLT VOLUME 8.5 fl (7.5-11.1); PLATELET COUNT 75 10^3/uL (134-434); RDW 15.6 % (11.9-15.9); WHITE BLOOD COUNT 6.7 K/mm3 (4.0-10.0)
[2021-03-17 14:38] LABS: INR 1.25 (0.83-1.09)
[2021-03-17 14:41] LABS: ACTIVATED PTT 31.1 SECONDS (25.2-36.5)
[2021-03-17 14:44] LABS: ALBUMIN 2.5 g/dl (3.4-5.0); BLOOD UREA NITROGEN 49.7 mg/dL (7-18); CALCIUM 7.3 mg/dL (8.5-10.1)
[2021-03-17 14:46] LABS: MAGNESIUM 2.1 mg/dL (1.8-2.4)
[2021-03-17 14:47] LABS: CREATININE 7.4 mg/dL (0.55-1.3)
[2021-03-17 14:49] LABS: BILIRUBIN,TOTAL 0.6 mg/dL (0.2-1); TOT PROT 6.3 g/dl (6.4-8.2)
[2021-03-17] MEDS ORDERED: SODIUM CHLORIDE 250 ML IV PRN (15:27)
[2021-03-17 15:45] LABS: ANISOCYTOSIS 0; MACROCYTOSIS 0; PLATELET ESTIMATE DECREASED
[2021-03-17] MEDS ORDERED: ASPIRIN 81 MG CHEWABLE TABLETS PO ONE (16:15)
[2021-03-17] MEDS ORDERED: ASPIRIN 81 MG CHEWABLE TABLETS ONE (16:26)
[2021-03-17] MEDS ORDERED: HEPARIN NA (PORCINE) 5,000 UNITS/ML 1ML VIAL IVPUSH ONE (16:30)
[2021-03-17] MEDS ORDERED: HEPARIN NA (PORCINE) 5,000 UNITS/ML 1ML VIAL SQ ONE (20:31)
[2021-03-17] MEDS ORDERED: SIMETHICONE 80 MG TAB.CHEW (FP) PO ONE (20:50)
[2021-03-17] MEDS ORDERED: PANTOPRAZOLE SODIUM 40 MG VIAL IVPUSH ONE (20:51)
[2021-03-17] MEDS ORDERED: PANTOPRAZOLE SODIUM 40 MG/100 ML BAG IVPB ONE (20:59)
[2021-03-17] MEDS ORDERED: HEPARIN NA (PORCINE) 5,000 UNITS/ML 1ML VIAL SQ SCH (22:00)
[2021-03-18] MEDS ORDERED: HEPARIN NA (PORCINE) 5,000 UNITS/ML 1ML VIAL ONE (03:51)
[2021-03-18] MEDS: HEPARIN NA (PORCINE) 5,000 UNITS/ML 1ML VIAL SQ SCH ×3 (04:01→22:00)
[2021-03-18 08:06] LABS: HEMATOCRIT 32.1 % (35.4-49); HEMOGLOBIN 10.9 GM/dL (11.7-16.9); MCH 31.3 pg (25.7-33.7); MEAN CELL VOLUME 92.1 fl (80-96); MEAN PLT VOLUME 8.2 fl (7.5-11.1); PLATELET COUNT 78 10^3/uL (134-434); RBC 3.48 M/mm3 (4.00-5.60); RDW 15.8 % (11.9-15.9); RETICULOCYTES 1.27 % (0.5-1.5); WHITE BLOOD COUNT 6.2 K/mm3 (4.0-10.0)
[2021-03-18 08:21] LABS: CHLORIDE 105 mmol/L (98-107); SODIUM 139 mmol/L (136-145)
[2021-03-18 08:25] LABS: MAGNESIUM 2.2 mg/dL (1.8-2.4)
[2021-03-18 08:27] LABS: PHOSPHOROUS 3.5 mg/dL (2.5-4.9)
[2021-03-18 08:28] LABS: ALBUMIN 2.2 g/dl (3.4-5.0); ANION GAP 11 MMOL/L (8-16); BLOOD UREA NITROGEN 59.8 mg/dL (7-18); CO2 22 mmol/L (21-32)
[2021-03-18 08:29] LABS: GLUCOSE,RANDOM 95 mg/dL (74-106); SGOT/AST 40 U/L (15-37)
[2021-03-18 08:31] LABS: BILIRUBIN,TOTAL 0.4 mg/dL (0.2-1); TOT PROT 5.8 g/dl (6.4-8.2)
[2021-03-18 08:32] LABS: ALK PHOS 90 U/L (45-117); SGPT/ALT 40 U/L (13-61)
[2021-03-18 08:33] LABS: IRON SERUM 73 ug/dL (50-175)
[2021-03-18 08:34] LABS: TOTAL IRON BINDING CAPACITY 149 ug/dL (250-450)
[2021-03-18 09:20] LABS: CREATININE 8.5 mg/dL (0.55-1.3)
[2021-03-18] MEDS ORDERED: HEPARIN NA (PORCINE) 5,000 UNITS/ML 1ML VIAL IVPUSH ONE (15:27)
[2021-03-18] MEDS: POLYETHYLENE GLYCOL (HEALTHYLAX) 3350 17 GM PACKET PO SCH (22:00)
[2021-03-18 22:16] VITALS: BMI 40.4
[2021-03-19] MEDS: HEPARIN NA (PORCINE) 5,000 UNITS/ML 1ML VIAL SQ SCH ×2 (06:01→13:43)
[2021-03-19 08:08] LABS: CREATININE 6.2 mg/dL (0.55-1.3); PHOSPHOROUS 2.5 mg/dL (2.5-4.9)
[2021-03-19 08:19] LABS: HEMATOCRIT 32.5 % (35.4-49); MCH 31.5 pg (25.7-33.7); MCHC 33.8 g/dl (32.0-35.9); MEAN CELL VOLUME 93.1 fl (80-96); MEAN PLT VOLUME 8.5 fl (7.5-11.1); PLATELET COUNT 86 10^3/uL (134-434); RBC 3.49 M/mm3 (4.00-5.60); RDW 15.7 % (11.9-15.9); WHITE BLOOD COUNT 7.7 K/mm3 (4.0-10.0)
[2021-03-19] MEDS ORDERED: TAMSULOSIN HCL 0.4 MG CAP PO SCH (10:00)
[2021-03-19] MEDS ORDERED: PANTOPRAZOLE 20 MG TABLET PO SCH (10:00)
[2021-03-19] MEDS: POLYETHYLENE GLYCOL (HEALTHYLAX) 3350 17 GM PACKET PO SCH (10:22)
[2021-03-19 14:37] VITALS: BP 95/58; PULSE 72; TEMP 98.5
== END 2021-03-19 16:30 | disposition home or self-care (01) ==
LOC: JER 10:38 → UNDOADMOB 16:56 → INTOOBSV 16:56 → JERBED 16:56 → J4S 03-18 21:13
PROVIDERS: ADMIT Internal Medicine
PROC: 3E033NZ Introduction of Analgesics, Hypnotics, Sedatives into Peripheral Vein, Percutaneous Approach (ICD-10-PCS; principal; 2021-03-18)
PROC: 3E033GC Introduction of Other Therapeutic Substance into Peripheral Vein, Percutaneous Approach (ICD-10-PCS; 2021-03-18)
PROC: 3E023GC Introduction of Other Therapeutic Substance into Muscle, Percutaneous Approach (ICD-10-PCS; 2021-03-18)
PROC: 3E0337Z Introduction of Electrolytic and Water Balance Substance into Peripheral Vein, Percutaneous Approach (ICD-10-PCS; 2021-03-18)
DX: N18.6 End stage renal disease (principal); R10.13 Epigastric pain; R79.89 Other specified abnormal findings of blood chemistry; Z99.2 Dependence on renal dialysis; E66.9 Obesity, unspecified; Z68.41 Body mass index [BMI] 40.0-44.9, adult; I89.0 Lymphedema, not elsewhere classified; N40.0 Benign prostatic hyperplasia without lower urinary tract symptoms; G51.0 Bell's palsy; K80.20 Calculus of gallbladder without cholecystitis without obstruction; I35.0 Nonrheumatic aortic (valve) stenosis; R01.1 Cardiac murmur, unspecified; Z79.01 Long term (current) use of anticoagulants
CPT/HCPCS: 36415; 71045-TC-FY; 74174-TC; 80048; 80053; 80061; 82550; 82728; 83540; 83550; 83605; 83690; 83735; 84100; 84443; 84484; 85025; 85027; 85045; 85610; 85730; 86803; 86850; 86900; 86901; 87040; 87340; 93005; 93010; 96365; 96372; 96374; 96375; 99285-25; C9803; G0378; J0131; J1644; Q9967; U0003; U0005